=== PATIENT | female | born 1935 | race Caucasian/White ===

== ENCOUNTER 2017-08-16 05:28 | Inpatient (IN) | payer OTHER ==
[~2017-08-16] VITALS: Ht 160 cm; Wt 73.3 kg
[~2017-08-16 05:28] MED LIST: ADVAIR 250-501 EACH INH; ALBUTEROL0.63 MG/1 INH/SOL; ASPIRIN EC81 M1 PO; GUAIFENESIN ER600 MG PO; PREDNISONE10 M2 PO; SPIRIVA18 MCG INH; TYLENOL EXTRA500 M2 PO; VERAPAMIL HCL120 M3 PO
--- NOTE | 2017-08-16 05:30 | ED DYSPNEA/ASTHMA COMPLAINT ---
History of Present Illness General Chief Complaint: Dyspnea (COPD, CHF, Other) Stated Complaint: SOB Source: patient, EMS Exam Limitations: clinical condition Vital Signs & Intake/Output Vital Signs & Intake/Output Vital Signs Date Time Temp Pulse Resp B/P B/P Pulse O2 O2 Flow FiO2 Mean Ox Delivery Rate 08/16 0455 102.7 08/16 0443 90 161/73 97 Non 100% ReBreather 08/16 528 102.7 30 88 Room Air Allergies Coded Allergies: NO KNOWN ALLERGIES (NKDA) (08/19/10) Reconcile Medications Acetaminophen (Tylenol Extra Strength) 500 MG TABLET 1 TAB PO Q6 PRN POST HERPETIC NEURALGIA Albuterol Sulfate 0.63 MG/3 ML VIAL.NEB 1 Vial INH/KAELYN 4 TIMES/DAY PRN BREATHING PROBLEMS (Reported) Aspirin (Ecotrin*) 81 MG TABLET.DR 1 TAB PO DAILY HEART HEALTH (Reported) Fluticasone/Salmeterol (Advair 250-50 Diskus) 1 EACH BLST.W.DEV 1 PUF INH BID BREATHING PROBLEMS (Reported) Guaifenesin (Guaifenesin ER) 600 MG TAB.ER.12H 1 TAB PO Q12 COUGH Tiotropium [place] (Spiriva) 18 MCG CAP.W.DEV 1 CAP INH DAILY BREATHING PROBLEMS (Reported) Verapamil HCl 120 MG TABLET 1 TAB PO BID HEART (Reported) Triage Nurses Notes Reviewed? yes Onset: Gradual Duration: hour(s): Timing: recent history Severity: moderate, severe Activities at Onset: none Prior Episodes/Possible Cause: occasional episodes Modifying Factors: Improves With: rest. 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 Per the medics, she was well last night, but during the night developed cough, wheezing, hypoxia. Upon arrival, the medics found her 02 sat on 3l nc in mid 80's Past History Travel History Traveled to [place] past 21 day No Medical History Any Pertinent Medical History? 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 No Review of Systems Review of Systems Constitutional: Reports: no symptoms. EENTM: Reports: no symptoms. Respiratory: Reports: no symptoms. Cardiovascular: Reports: no symptoms. GI: Reports: no symptoms. Genitourinary: Reports: no symptoms. Musculoskeletal: Reports: no symptoms. Skin: Reports: no symptoms. Neurological/Psychological: Reports: no symptoms. Hematologic/Endocrine: Reports: no symptoms. Immunologic/Allergic: Reports: no symptoms. All Other Systems: Reviewed and Negative Physical Exam Physical Exam General Appearance: well developed/nourished, moderate distress Head: atraumatic, normal appearance Eyes: Bilateral: normal appearance. Ears, Nose, Throat: normal pharynx, normal ENT inspection Neck: normal inspection, supple, full range of motion Respiratory: accessory muscle use, rhonchi, wheezing, respiratory distress Cardiovascular: regular rate/rhythm Gastrointestinal: normal bowel sounds, soft, non-tender, no organomegaly Rectal: normal exam, normal rectal tone, heme negative stool Extremities: normal inspection, normal capillary refill, normal range of motion, no edema Neurologic/Psych: no motor/sensory deficits, awake, alert, oriented x 3 Skin: intact, normal color, warm/dry Core Measures ACS in differential dx? No CVA/TIA Diagnosis No Sepsis Present: Yes Sepsis Focused Exam Completed? Yes Progress Differential Diagnosis: asthma, bronchitis, CHF, COPD, pneumonia Plan of Care: Orders Procedure Date/time Status LACTIC ACID 08/16 0831 Active OXYGEN SETUP (GEN) 08/16 629 Complete AEROSOL (GEN) 08/16 629 Complete AEROSOL (GEN) 08/16 0610 Complete AEROSOL (GEN) 08/16 06 Complete ARTERIAL BLOOD GAS (GEN) 08/16 600 Complete BLOOD CULTURE 08/16 05 Active RAPID VIRAL INFLUENZA A 08/16 533 Complete BLOOD CULTURE 08/16 530 Active TROPONIN LEVEL 08/16 530 Complete PARTIAL THROMBOPLASTIN TIME 08/16 530 Complete PROTHROMBIN TIME 08/16 530 Complete LIPASE 08/16 530 Complete LACTIC ACID 08/16 530 Complete HEPATIC FUNCTION PANEL 08/16 530 Complete D-DIMER 08/16 530 Complete CBC WITHOUT DIFFERENTIAL 08/16 530 Complete B-TYPE NATRIURETIC PEP (BNP) 08/16 530 Complete BASIC METABOLIC PANEL 08/16 530 Complete AMYLASE 08/16 530 Complete EKG 08/16 530 Active Current Medications Sig/Ad Start time Last Medication Dose Stop Time Status Admin Heparin Sodium 5,000 UNIT ONCE ONE 08/16 644 CANr (Porcine) 08/16 645 (Heparin Bolus) Heparin Sodium 25,000 UNIT Q24H 08/16 644 CANr (Porcine) (Heparin) Sodium Chloride 500 ML Laboratory Tests 08/16/17 0540: pH 7.33 L, pCO2 36, pO2 63 L, HCO3 18 L, ABG O2 Sat (Measured) 91.0 L, Carboxyhemoglobin 0.2 L, O2 Concentration % 4L, O2 Delivery Method NC, Anion Gap 14, Estimated GFR 29 L, BUN/Creatinine Ratio 24.1, Glucose 123 H, Lactic Acid 2.2 H, Calcium 8.7, Total Bilirubin 0.6, Direct Bilirubin 0.3, AST 18, ALT 31, Alkaline Phosphatase 53, Troponin I 0.01, [id number]-R-Xzqqupbirvv Pept 3220 H, Total Protein 6.4, Albumin 3.5, Amylase 116 H, Lipase 178, PT 11.4, INR 1.05, APTT 20 L, D-Dimer High Sensitivty 5718 H, CBC w Diff MAN DIFF ORDERED, RBC 4.13 L, MCV 90.9, MCH 29.8, MCHC 32.8 L, RDW 14.9 H, MPV 7.4, Gran % 89.8 H, Lymphocytes % 6.4 L, Monocytes % 2.5, Eosinophils % 1.1, Basophils % 0.2, Absolute Granulocytes 11.3 H, Segmented Neutrophils 73, Band Neutrophils 14 H, Absolute Lymphocytes 0.8 L, Lymphocytes 7 L, Monocytes 4, Absolute Monocytes 0.3, Eosinophils 2, Absolute Eosinophils 0.1, Absolute Basophils 0, Platelet Estimate ADEQUATE, Poikilocytosis 1+, Ovalocytes 1+, Phlebotomy Draw Site RIGHT RADIAL Microbiology 08/16 614 BLOOD: Blood Culture - RECD 08/16 549 NASOPHARYN: Influenza Virus A & B Rapid Smear - COMP 08/17 539 BLOOD: Blood Culture - RECD Diagnostic Imaging: Viewed by Me: Radiology Read. Discussed w/RAD: Radiology Read. CXR Impression: PATIENT: GIBSON HERCULES PRESENT AGE: 82 PATIENT ACCOUNT NO: [id number] : 34 LOCATION: [facility] ORDERING PHYSICIAN: Kirby Maxwell MD SERVICE DATE: 08/16/17 EXAM TYPE: RAD - XRY-PORTABLE CHEST XRAY EXAMINATION: XR PORTABLE CHEST CLINICAL INFORMATION: Chest pain COMPARISON: 03/18/2017 TECHNIQUE: Portable frontal view of the chest was obtained. FINDINGS: There is heterogeneous opacification of the mid to basilar right lung, with a suspected small pleural effusion. Streaky opacity at the left base is more suggestive of atelectasis. No evidence of pneumothorax. The cardiomediastinal silhouette is stable. Calcification is present at the aortic arch. No acute osseous findings are seen. IMPRESSION: 1. Heterogeneous opacification of the mid to basilar right lung, concerning for pneumonia. 2. Small right pleural effusion. 3. Streaky left basilar opacity, suggesting atelectasis. DICTATED BY: Anand Corona MD DATE/TIME DICTATED:08/16 HAND TUBE WINDER:TESSA DATE/TIME TRANSCRIBED:08/16/17600 CONFIDENTIAL, DO NOT COPY WITHOUT APPROPRIATE AUTHORIZATION. <Electronically signed in Other Vendor System> SIGNED BY: Anand Corona MD 08/16/17605 Initial ED EKG: nsr, no acute changes Departure Departure Disposition: STILL A PATIENT Condition: Stable Clinical Impression Primary Impression: COPD exacerbation Secondary Impressions: Pneumonia, Sepsis Referrals: Hugo ACOSTA,Constantine Rios (PCP/Family) Departure Forms: Customer Survey General Discharge Information Comments 08/16/17, 5:32AM... pt's 02 sat 89% on 100% NRB via medics, upon arrival... with repositioning, 02 sat 97%... will check abg, titrate 02, Admission Note Spoke With: Stephanie Santa MD Documentation of Exam: Documentation of any treatments & extenuating circumstances including Concerns Regarding Discharge (functional status, medication knowledge or non-compliance, living conditions, etc.) that warrant an admission rather than observation: pt with hypoxia, cough, phlegm, evidence of pneumonia on cxr, with wheezing and prolonged expiratory phase on exam.... pt with increased 02 requirement and evidence of sepsis on exam. pt given steroids, abx, nebs, [address] santa... elevated d-dimer noted... will defer heparin given evidence of pneumonia. Critical Care Note Critical Care Note Critical Care Time: 30-74 min
--- NOTE | 2017-08-16 06:06 | RADIOLOGY REPORT ---
EXAMINATION: XR PORTABLE CHEST CLINICAL INFORMATION: Chest pain COMPARISON: 03/18/2017 TECHNIQUE: Portable frontal view of the chest was obtained. FINDINGS: There is heterogeneous opacification of the mid to basilar right lung, with a suspected small pleural effusion. Streaky opacity at the left base is more suggestive of atelectasis. No evidence of pneumothorax. The cardiomediastinal silhouette is stable. Calcification is present at the aortic arch. No acute osseous findings are seen. IMPRESSION: 1. Heterogeneous opacification of the mid to basilar right lung, concerning for pneumonia. 2. Small right pleural effusion. 3. Streaky left basilar opacity, suggesting atelectasis.
[2017-08-16 06:12] LABS: ABSOLUTE BASOPHIL COUNT 0 /CUMM (0.0-0.2); ABSOLUTE EOSINOPHIL COUNT 0.1 /CUMM (0.0-0.7); ABSOLUTE GRANULOCYTE CT 11.3 /CUMM (1.4-6.5); ABSOLUTE LYMPH COUNT 0.8 /CUMM (1.2-3.4); ABSOLUTE MONOCYTE COUNT 0.3 /CUMM (0.10-0.60); BASOPHIL % 0.2 % (0.0-2.0); EOSINOPHIL % 1.1 % (0-5); GRANULOCYTE % 89.8 % (42.2-75.2); HEMATOCRIT 37.6 % (37-47); MEAN CORPUSCULAR HGB 29.8 PG (27.0-31.0); MEAN CORPUSCULAR HGB CONC 32.8 G/DL (33.0-37.0); MEAN CORPUSCULAR VOLUME 90.9 FL (81.0-99.0); MEAN PLATELET VOLUME 7.4 FL (7.4-10.4); PLATELET COUNT 311 /CUMM (130-400); RBC DISTRIBUTION WIDTH 14.9 % (11.5-14.5); RED BLOOD CELL CT 4.13 /CUMM (4.20-5.40); WHITE BLOOD CELL COUNT 12.6 /CUMM (4.8-10.8)
[2017-08-16 06:17] LABS: PT 11.4 SEC (9.4-12.5); PTT 20 SEC (25-37)
--- NOTE | 2017-08-16 09:16 | Admission Certification ---
Admission Certification Certification Statement - As attending physician, I certify that at the time of - admission, based on clinical presentation, severity of - symptoms, need for further diagnostic testing and - therapeutic interventions, and risk of adverse outcomes - without in-hospital treatment, in my clinical assessment, - this patient requires an acute hospital stay for a minimum - of two nights or longer. I have also considered psychsocial - factors such as support system, advanced age, financial - issues, cognitive issues, and failed out-patient treatments, - past re-admission history, safety of patient, and lack of - compliance as applicable. Specific rationale supporting this admission is: Patient with underlying COPD here with a community-acquired pneumonia.
--- NOTE | 2017-08-16 09:50 | History & Physical ---
Disha Sanabria 08/16/17 0939: General Information and HPI MD Statement: I have seen and personally examined GIBSON HERCULES and documented this H&P. The patient is a 82 year old F who presented with a patient stated chief complaint of SOB Source of Information: patient Exam Limitations: no limitations History of Present Illness: Patient is 82-year-old pleasant woman with a past medical history significant for oxygen dependent COPD(on nocturnal 3 L of oxygen), questionable interstitial lung disease-history of 20-25 year exposure to chemicals and fumes at [facility], remote history of left lower extremity DVT -not on any anticoagulation ,history of hypertension, history of gout, history of osteoporosis, GERD, history of shingles March 2017 complicated with neuropathy, , presented to the ED through ambulance for the evaluation of acute shortness of breath. Patient mentioned that she usually have exertional shortness of breath due to her underlying obstructive lung disease, uses 3 L of oxygen at night. Last night she started having more shortness of breath with wheezing not associated with any chest discomfort palpitations/sweating. She used her rescue inhalers without any improvement in her symptoms. Her symptoms gotten worse to the point that she wouldn't able to breathe and called 911 for help. Upon arrival of the EMS patient was desaturating, she was put on 100% nonrebreather mask and the sats improved to 94. In the ED patient was extremely short of breath, initially nonrebreather mask was continued, she was administered 125 mg of Solu-Medrol, that resulted in slight improvement in her symptoms. At the time of evaluation patient was still short of breath saturating around 92 % on 5 L. 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 Denied any recent COPD flareups, never been intubated in the past. Denies any recent travels/sick exposures. Reported nausea without any vomiting abdominal discomfort. Denied any urinary complaints. Pt quit smoking many years ago and does not drink alcohol. At baseline she is independent in her ADLs, ambulates with a walker. Allergies/Medications Allergies: Coded Allergies: NO KNOWN ALLERGIES (NKDA) (08/19/10) Home Med list Acetaminophen (Tylenol Extra Strength) 500 MG TABLET 1 TAB PO Q6 PRN POST HERPETIC NEURALGIA Albuterol Sulfate 0.63 MG/3 ML VIAL.NEB 1 Vial INH/KAELYN 4 TIMES/DAY PRN BREATHING PROBLEMS (Reported) Aspirin (Ecotrin*) 81 MG TABLET.DR 1 TAB PO DAILY HEART HEALTH (Reported) Fluticasone/Salmeterol (Advair 250-50 Diskus) 1 EACH BLST.W.DEV 1 PUF INH BID BREATHING PROBLEMS (Reported) Guaifenesin (Guaifenesin ER) 600 MG TAB.ER.12H 1 TAB PO Q12 COUGH Tiotropium [place] (Spiriva) 18 MCG CAP.W.DEV 1 CAP INH DAILY BREATHING PROBLEMS (Reported) Verapamil HCl 120 MG TABLET 1 TAB PO BID HEART (Reported) Past History Travel History Traveled to [place] past 21 day No Medical History Neurological: NONE EENT: NONE Cardiovascular: hypertension Respiratory: COPD (3L/min NC O2) Gastrointestinal: GERD Hepatic: NONE Renal: NONE Musculoskeletal: gout, osteoporosis Psychiatric: NONE Endocrine: NONE Blood Disorders: NONE Cancer(s): NONE 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 Review of Systems Review of Systems Constitutional: Denies: diaphoresis, fever, malaise. EENTM: Denies: blurred vision, double vision, visual changes. Cardiovascular: Denies: chest pain, edema, orthopena. Respiratory: Reports: short of breath, wheezing. Denies: orthopnea. GI: Reports: nausea. Denies: bloating, constipation, diarrhea. Genitourinary: Denies: discharge, dysuria, frequency, hematuria. Musculoskeletal: Denies: back pain, gout, joint pain. Skin: Denies: change in skin color, change in hair/nails, dryness. Neurological/Psychological: Denies: anxiety, ataxia, cognitive dysfunction. Hematologic/Endocrine: Denies: bruising, bleeding. Exam & Diagnostic Data Last 24 Hrs of Vital Signs/I&O Vital Signs Date Time Temp Pulse Resp B/P B/P Pulse O2 O2 Flow FiO2 Mean Ox Delivery Rate 08/16 0932 98.5 94 20 143/65 96 Nasal 5.0L Cannula 08/16 0804 94 Nasal 5.0L Cannula 08/16 0728 99.9 08/16 0653 99.9 99 22 122/66 95 Nasal 5.0L Cannula 08/16 0630 92 Nasal 6.0L Cannula 08/16 0610 90 Nasal 6.0L Cannula 08/16 0555 102.7 08/16 0545 97 Non 100% ReBreather 08/16 0543 90 161/73 97 Non 100% ReBreather 08/16 0529 102.7 30 88 Room Air Intake & Output 08/16 1600 08/16 0800 08/16 0000 Intake Total 0 Output Total Balance 0 Intake, Oral 0 Physical Exam General Appearance Alert, Oriented X3 Skin No Rashes, No Breakdown Skin Temp/Moisture Exam: Cool/Dry Sepsis Skin Exam (color): Normal for Ethnicity, Cyanotic Cardiovascular Regular Rate, Normal S1, Normal S2 Lungs DECREASED AIR ENTRY IN ALL LUNG [place], WITH SOME CRACKLES/RONCHI IN RIGHT LUNG BASIS. Abdomen Normal Bowel Sounds, Soft, No Tenderness Neurological Normal Gait, Normal Speech, Strength at 5/5 X4 Ext Extremities BILATERAL LEG SWELLING LEFT MORE THAN THEN RIGHT Vascular Normal Pulses, Pulses Symmetrical Last 24 Hrs of Labs/Roberto: Laboratory Tests 08/16/17 0850: Lactic Acid 1.2 08/16/17 0540: pH 7.33 L, pCO2 36, pO2 63 L, HCO3 18 L, ABG O2 Sat (Measured) 91.0 L, Carboxyhemoglobin 0.2 L, O2 Concentration % 4L, O2 Delivery Method NC, Anion Gap 14, Estimated GFR 29 L, BUN/Creatinine Ratio 24.1, Glucose 123 H, Lactic Acid 2.2 H, Calcium 8.7, Total Bilirubin 0.6, Direct Bilirubin 0.3, AST 18, ALT 31, Alkaline Phosphatase 53, Troponin I 0.01, Pfm-T-Fqiiesxyxrn Pept 3220 H, Total Protein 6.4, Albumin 3.5, Amylase 116 H, Lipase 178, PT 11.4, INR 1.05, APTT 20 L, D-Dimer High Sensitivty 5718 H, CBC w Diff MAN DIFF ORDERED, RBC 4.13 L, MCV 90.9, MCH 29.8, MCHC 32.8 L, RDW 14.9 H, MPV 7.4, Gran % 89.8 H, Lymphocytes % 6.4 L, Monocytes % 2.5, Eosinophils % 1.1, Basophils % 0.2, Absolute Granulocytes 11.3 H, Segmented Neutrophils 73, Band Neutrophils 14 H, Absolute Lymphocytes 0.8 L, Lymphocytes 7 L, Monocytes 4, Absolute Monocytes 0.3, Eosinophils 2, Absolute Eosinophils 0.1, Absolute Basophils 0, Platelet Estimate ADEQUATE, Poikilocytosis 1+, Ovalocytes 1+, Phlebotomy Draw Site RIGHT RADIAL Microbiology 08/16 937 URINE ROUT: Legionella Antigen - ORD 08/16 937 URINE ROUT: Streptococcus pneumoniae Antigen (M - ORD 08/16 937 LOWER RESP: Respiratory Culture - ORD 08/16 937 LOWER RESP: Gram Stain - ORD 08/16 614 BLOOD: Blood Culture - RECD 08/16 549 NASOPHARYN: Influenza Virus A & B Rapid Smear - COMP 08/17 539 BLOOD: Blood Culture - RECD Assessment/Plan Assessment: Patient is 82-year-old pleasant woman with a past medical history significant for oxygen dependent COPD(on nocturnal 3 L of oxygen), questionable interstitial lung disease-history of 20-25 year exposure to chemicals and fumes at [employer], remote history of left lower extremity DVT -not on any anticoagulation ,history of hypertension, history of gout, history of osteoporosis, GERD, history of shingles March 2017 complicated with neuropathy, , presented to the ED through ambulance for the evaluation of acute shortness of breath. Initial vitals in the ED temperature 102.7, pulse 90, blood pressure 161/73, respiratory rate: 30, initially on 100% nonrebreather mask currently on 5 L saturating around 92% Pertinent labs in remission leukocytosis. 0.5 with bandemia 14, H&H stable,, hyperkalemia 5.4 BUN and creatinine: 41/1.7 with a d-dimer 5718 ABG pH 7.33, PCO2 36, with bicarbonate of 18. Lactic acidosis 2.2, elevated proBNP, flu test negative Chest x-ray evident for Heterogeneous opacification of the mid to basilar right lung, concerning for pneumonia. EKG showed normal sinus rhythm with QTC 413 and poor R-wave progression. Left lower extremity Doppler ultrasound positive for DVT. Assessment Acute hypoxic respiratory failure and sepsis in the setting of community- acquired pneumonia and COPD exacerbation Left lower extremities DVT(history of remote DVT in the past, not on any anticoagulation) Mild LILIA Mild hyperkalemia History of diastolic heart failure Questionable interstitial lung disease(long-term exposure to chemicals and fumes at [facility] more than 20 years) History of hypertension History of gout History of osteoporosis Plan Acute hypoxic respiratory failure and sepsis in the setting of community- acquired pneumonia and COPD exacerbation * Admit the patient [facility] floor * Patient already received IV Solu-Medrol 125 mg along with Rocephin and azithromycin in the ED with one bag of normal saline. We will continue with Rocephin and azithromycin for community for pneumonia. * Awaiting blood cultures will obtain sputum cultures strep pneumonia and legionella antigens. * Robitussin as needed for cough * IV hydration at the rate of 100 ml per hour * Start the patient on Solu-Medrol 40 mg every 8 hours * TRC nebs * Continue oxygen to keep saturations 92% * Monitor vitals every 4 hours was for any hemodynamic instability. Left lower extremities DVT(history of remote DVT in the past, not on any anticoagulation) * Left lower extremity ultrasound positive for DVT. We'll start the patient on heparin. * Left lower extremity DVT along with acute hypoxia, elevated d-dimer also raises the concern of pulmonary embolism(Wells Score:4.5), will just continue with heparin Will hold CTA for now in the setting of kidney dysfunction. Mild LILIA * IV hydration at the rate of 100 ml per hour Mild hyperkalemia * Repeat BEP tomorrow. History of diastolic heart failure * Patient has a history of diastolic heart failure echocardiogram done 2010 showed EF of more than 60%. ProBNP is currently elevated, will repeat echocardiogram to rule out any underlying heart failure contributing to acute shortness of breath. History of hypertension * Hold antihypertensives for now, we will resume antihypertensives once blood pressure is stable. Mild to moderate pain controlled with IV Tylenol DVT prophylaxis with heparin Patient is full code As Ranked By This Provider Problem List: 1. Sepsis 2. Pneumonia 3. COPD exacerbation 4. DVT (deep venous thrombosis) Core Measures/Misc (12/29) Acute Coronary Syndrome ACS Diagnosis: No Congestive Heart Failure Congestive Heart Failure Diagnosis No Cerebrovascular Accident CVA/TIA Diagnosis: No VTE (View Protocol) VTE Risk Factors Acute Medical Illness No Mechanical VTE Prophylaxis d/t LowRisk-No Interven Req'd No VTE Pharm Prophylaxis d/t LowRisk-No Interven Req'd Sepsis (View protocol) Sepsis Present: No Resident Review Statement Resident Statement: examined this patient, discussed with strategy intern Stephanie Solis MD 08/16/17 1043: Attending MD Review Statement Attending Statement Attending MD Statement: examined this patient, discuss w/resident/PA/SNOW MAKER, agreed w/resident/PA/SNOW MAKER, reviewed EMR data (avail), discussed with nursing, reviewed images Attending Assessment/Plan: 82-year-old female past medical history of COPD with chronic respiratory failure on 3 L of oxygen, she follows with a Dr. Gracia who is her discharging machine operator as an outpatient and is maintained on Symbicort and Spiriva as an outpatient. She also has a history remote history of a DVT with chronic lower extremity swelling. She is here with acute hypoxemic respiratory failure, and pneumonia as evidenced by a fever 102 with a cough, sputum, leukocytosis bandemia and an infiltrate on chest x-ray. She also has LILIA with dehydration in the setting of the acute infection. At this point will bring her into [facility], get blood cultures, sputum cultures, her flu swab was negative and will start on ceftriaxone and azithro. She has evidence of a COPD exacerbation and her blood gas shows a PO2 of 63 on 4 L which is clear evidence of acute hypoxemic respiratory failure. Will increase her O2 and watch her sats closely. We'll give IV steroids for COPD exacerbation and to continue her spiriva and Symbicort. She had an elevated d-dimer and the ultrasound is reported positive for a left popliteal DVT. Given her Lilia we'll start her on IV unfractionated heparin. 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
[2017-08-16 11:19] VITALS: BP 110/60
--- NOTE | 2017-08-16 13:23 | ULTRASOUND REPORT ---
EXAMINATION: LEFT LOWER EXTREMITY VENOUS DOPPLER ULTRASOUND CLINICAL INFORMATION: Left leg swelling. COMPARISON: None. TECHNIQUE: Doppler spectral analysis and color flow Doppler imaging was performed of the left lower extremity. Compression and augmentation maneuvers were performed. FINDINGS: The left common femoral vein, greater saphenous vein takeoff, and femoral vein, are normally compressible with normal phasic changes seen with Doppler imaging. There is noncompressibility of the left popliteal vein, consistent with an occlusive thrombus. The midcalf peroneal and posterior tibial veins are not seen. No popliteal cyst is seen. Of note, on initial scanning, a 8.1 x 9.1 x 8.4 cm cystic mass was seen in region of the left groin. The patient was brought back to the department for real-time assessment of this finding. On real-time scanning, this collection is shown to represent a large bladder diverticulum. The bladder and this diverticulum in aggregate measure approximately 19.6 x 8.8 cm. IMPRESSION: 1. Positive occlusive deep venous thrombosis in the left popliteal vein. 2. 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 If the patient is unable to void, straight catheter decompression of the bladder is recommended. This critical result was discussed with Dr. Disha Sanabria 08/16/2017, 11:30 AM, and it was ascertained that the content and urgency of this report was understood at the time of direct communication.
[2017-08-16 14:29] VITALS: BP 110/60
[2017-08-16 21:15] LABS: PTT 53 SEC (25-37)
[2017-08-16 22:17] VITALS: BP 134/56
[2017-08-17 05:18] LABS: ABSOLUTE BASOPHIL COUNT 0 /CUMM (0.0-0.2); ABSOLUTE EOSINOPHIL COUNT 0 /CUMM (0.0-0.7); ABSOLUTE GRANULOCYTE CT 19.8 /CUMM (1.4-6.5); ABSOLUTE LYMPH COUNT 0.6 /CUMM (1.2-3.4); ABSOLUTE MONOCYTE COUNT 0.7 /CUMM (0.10-0.60); BASOPHIL % 0 % (0.0-2.0); EOSINOPHIL % 0 % (0-5); GRANULOCYTE % 93.8 % (42.2-75.2); MEAN CORPUSCULAR HGB 29.5 PG (27.0-31.0); MEAN CORPUSCULAR HGB CONC 32.4 G/DL (33.0-37.0); MEAN CORPUSCULAR VOLUME 91.1 FL (81.0-99.0); MEAN PLATELET VOLUME 7.4 FL (7.4-10.4); PLATELET COUNT 208 /CUMM (130-400); RBC DISTRIBUTION WIDTH 14.9 % (11.5-14.5)
[2017-08-17 05:42] LABS: PTT > 120 SEC (25-37)
[2017-08-17 05:48] LABS: HEMATOCRIT 27.3 % (37-47); RED BLOOD CELL CT 2.99 /CUMM (4.20-5.40); WHITE BLOOD CELL COUNT 21.1 /CUMM (4.8-10.8)
[2017-08-17 06:20] VITALS: BP 116/50
--- NOTE | 2017-08-17 08:29 | PN- Housestaff ---
[facility]29[facility] Subjective Follow-up For: Acute hypoxic respiratory failure due to community acquired pneumonia Left leg DVT Subjective: No overnight events. Patient remained afebrile edema. Seen and examined this morning. Patient is short of breath as morning although she is using 4 L of oxygen and maintaining saturation 93%. Her ABG showed pH 7.28. Patient reported that she has intermittent cough and she is not able to bring sputum feeling tightness in the chest. Patient denied abdominal pain nausea vomiting and dysuria. I updated her her family about her condition. I spoke to her son and told him that she is currently on BiPAP for some time a cause of difficulty in breathing and if she couldn't get better may be transferred to ICU. Review of Systems Constitutional: Denies: chills, fever. EENTM: Reports: no symptoms. Cardiovascular: Denies: chest pain, palpitations. Respiratory: Reports: cough, short of breath, sputum production. Gastrointestinal: Denies: abdominal pain, constipation, diarrhea, melena, nausea. Genitourinary: Reports: no symptoms. Neurological/Psychological: Reports: no symptoms. Objective Last 24 Hrs of Vital Signs/I&O Vital Signs Date Time Temp Pulse Resp B/P B/P Pulse O2 O2 Flow FiO2 Mean Ox Delivery Rate 08/17 0803 101 148/60 08/17 0800 Nasal 3.0L Cannula 08/17 0725 93 Nasal 3.0L Cannula 08/17 0620 98.9 91 22 116/50 96 Nasal Cannula 08/17 0203 97 Nasal 3.0L Cannula 08/17 0000 99 Nasal 3.0L Cannula 08/16 2217 98.4 100 24 134/56 99 Nasal 3.0L Cannula 08/16 2127 100 134/56 05/05 1610 97 Nasal 4.0L Cannula 08/16 1600 97 Nasal 3.0L Cannula 08/16 1429 99.1 94 24 110/60 94 05/05 1311 Nasal 4.0L Cannula 05/05 1119 99.1 94 24 110/60 94 05/05 1046 Nasal 3.0L Cannula 05/05 1017 Nasal 5.0L Cannula / 0932 98.5 94 20 143/65 96 Nasal 5.0L Cannula Intake & Output 08/17 1600 08/17 0800 05/06 0000 Intake Total 1016 495 Output Total 700 Balance 316 495 Intake, IV 896 375 Intake, Oral 120 120 Number 0 Bowel Movements Output, Urine 700 Patient 162 lb Weight Weight Bed scale Measurement Method Physical Exam General Appearance: Alert, Oriented X3, Cooperative Skin: No Rashes Skin Temp/Moisture Exam: Warm/Dry Sepsis Skin Exam (color): Normal for Ethnicity HEENT: Atraumatic, PERRLA, EOMI Neck: Supple Cardiovascular: Normal S1, Normal S2 Lungs: b/l crepitus Abdomen: Soft, No Tenderness Neurological: Normal Speech, Strength at 5/5 X4 Ext, Normal Tone Extremities: b/l pedal edema Assessment/Plan Assessment: 82 YO F with PMH of 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 We are following the patient will follow problems: Acute hypoxic respiratory failure due to community accquired Pneumonia and COPD exacerbation: -Continue supplemental oxygen to keep saturation above 92%. -Continue azithromycin and ceftriaxone -TRC nebulization as needed -Continue Mucinex -Continue Solu-Medrol IV 40 mg every 8 hourly -Incentive spirometry -Chest physiotherapy -Follow blood cultures -Urine Legionella and strep antigens are negative -Patient's ABG showed pH 7.28 and she is tachypneic may need BiPAP. -IV fluids were discontinued. -Repeat chest x-ray to see for pleural effusion or congestion. Left leg DVT: -Doppler study was positive for left popliteal vein DVT -Continue IV heparin Acute kidney injury: -Possibly due to dehydration -Avoid nephrotoxic medications -Today her creatinine level is 1.5 Drop in H&H: -Patient's H&H has been dropped since yesterday -Repeat CBC -Patient may need blood transfusion History of diastolic heart failure: -Patient has a history of diastolic heart failure echocardiogram done 2010 showed EF of more than 60%. -Elevated proBNP on admission -We are holding her Lasix. If repeat chest x-ray showed any pleural effusion or congestion we will start low-dose Lasix. History of hypertension: -Holding her hypertension medications DVT prophylaxis: Mechanical and patient is on IV heparin drip CODE STATUS: Full code Problem List: 1. COPD exacerbation 2. Pneumonia 3. 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 Her ABG shows worsening metabolic acidosis and no CO2 retention and her PO2 is better on [address] Becker in for pulmonary consult and we did a chest x-ray which is difficult to interpret but cannot rule out interstitial edema. We also BladderScan her to see if she is retaining any urine given the ultrasound findings of the distended bladder and diverticulum but there is no urine in the bladder and the nurse confirm that she's been urinating all night. She is an 82-year-old female who we were treating for community-acquired pneumonia with IV ceftriaxone and azithromycin, she has chronic COPD with chronic respiratory failure on 3 L of oxygen chronically and we were treating her with IV steroids for a COPD exacerbation and she also has this popliteal DVT which we are treating with IV unfractionated heparin. At this point given the acute respiratory distress and acute hypoxemic respiratory failure, we we'll continue the antibiotics and steroids. We'll give her 1 dose of Lasix 20 mg IV push to account for any fluid overload and interstitial edema. Her creatinine is better for but will watch that closely and obviously stop the fluids. We'll continue the IV unfractionated heparin for treatment of VTE. Will start BiPAP and Dr. Becker has already spoken to the respiratory therapist about the settings for the same. Her son was updated about all of the above and if her condition doesn't improve in the next 1-2 hours we'll transfer her to the ICU.
--- NOTE | 2017-08-17 09:55 | Cons- Pulmonary ---
General Information and HPI Consulting Request Date of Consult: 08/17/17 Requested By: Savannah Renae Reason for Consult: Exacerbation COPD pneumonia History of Present Illness: Patient is an 82-year-old with severe COPD oxygen dependent admitted with increasing shortness of breath and found to have an abnormal chest x-ray with leukocytosis and bandemia acute kidney injury and lactic acidosis. She was started on IV steroids antibiotics and normal saline. Her course was complicated by an acute left DVT for which she is now on heparin. Serial arterial blood gases showed development of a worsening acidosis likely related to hyperchloremia as the lactic acid level has improved and there is no anion gap. Ultrasound suggests the possibility of bladder obstruction which may be contributing to an obstructive uropathy. Allergies/Medications Allergies: Coded Allergies: NO KNOWN ALLERGIES (NKDA) (08/19/10) Home Med List: Acetaminophen (Tylenol Extra Strength) 500 MG TABLET 1 TAB PO Q6 PRN POST HERPETIC NEURALGIA Albuterol Sulfate 0.63 MG/3 ML VIAL.NEB 1 Vial INH/KAELYN 4 TIMES/DAY PRN BREATHING PROBLEMS (Reported) Aspirin (Ecotrin*) 81 MG TABLET.DR 1 TAB PO DAILY HEART HEALTH (Reported) Fluticasone/Salmeterol (Advair 250-50 Diskus) 1 EACH BLST.W.DEV 1 PUF INH BID BREATHING PROBLEMS (Reported) Guaifenesin (Guaifenesin ER) 600 MG TAB.ER.12H 1 TAB PO Q12 COUGH Tiotropium [place] (Spiriva) 18 MCG CAP.W.DEV 1 CAP INH DAILY BREATHING PROBLEMS (Reported) Verapamil HCl 120 MG TABLET 1 TAB PO BID HEART (Reported) Review of Systems Review of Systems Constitutional: Reports: chills, fever. Cardiovascular: Reports: peripheral edema. Denies: chest pain. Respiratory: Reports: cough, short of breath. Denies: hemoptysis, sputum production. GI: Denies: abdominal pain, diarrhea, melena. 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 Home Services at Home: None Smoking Status: Former Smoker Functional Ability ADLs Independent: dressing, eating, toileting, bathing. Exam & Diagnostic Data Last 24 Hrs of Vital Signs/I&O Vital Signs Date Time Temp Pulse Resp B/P B/P Pulse O2 O2 Flow FiO2 Mean Ox Delivery Rate 08/17 0946 95 Nasal 4.0L Cannula 08/17 0803 101 148/60 08/17 0800 Nasal 3.0L Cannula 08/17 0725 93 Nasal 3.0L Cannula 08/17 0620 98.9 91 22 116/50 96 Nasal Cannula 08/17 0203 97 Nasal 3.0L Cannula 08/17 0000 99 Nasal 3.0L Cannula 08/16 2217 98.4 100 24 134/56 99 Nasal 3.0L Cannula 08/16 2127 100 134/56 / 1610 97 Nasal 4.0L Cannula 08/16 1600 97 Nasal 3.0L Cannula 08/16 1429 99.1 94 24 110/60 94 05/05 1311 Nasal 4.0L Cannula 08/16 1119 99.1 94 24 110/60 94 05/05 1046 Nasal 3.0L Cannula 08/16 1017 Nasal 5.0L Cannula Intake & Output 08/17 1600 08/17 0800 05/ 0000 Intake Total 1016 495 Output Total 700 Balance 316 495 Intake, IV 896 375 Intake, Oral 120 120 Number 0 Bowel Movements Output, Urine 700 Patient 162 lb Weight Weight Bed scale Measurement Method Oxygen saturation 4 L 95%exam for chest shows crackles over the right posterior lung there are no wheezes breath sounds are diminished cardiac exam shows regular S1 and S2 without murmurs abdomen is soft nontender there is asymmetrical edema of the left leg H EENT exam shows no adenopathy or jugular venous distention Last 48 Hrs of Labs/Roberto: Laboratory Tests 08/17/17 0900: pH 7.28 *L, pCO2 38, pO2 82, HCO3 17 L, ABG O2 Sat (Measured) 95.0 L, Carboxyhemoglobin 0.1 L, O2 Concentration % 4L, O2 Delivery Method N/C, Phlebotomy Draw Site LEFT RADIAL 08/17/17 0455: Anion Gap 9, Estimated GFR 33 L, BUN/Creatinine Ratio 29.3 H, APTT > 120 *H, CBC w Diff MAN DIFF ORDERED, RBC 2.99 L, MCV 91.1, MCH 29.5, MCHC 32.4 L, RDW 14.9 H, MPV 7.4, Gran % 93.8 H, Lymphocytes % 3.0 L, Monocytes % 3.2, Eosinophils % 0, Basophils % 0, Absolute Granulocytes 19.8 H, Segmented Neutrophils 89 H, Band Neutrophils 7 H, Absolute Lymphocytes 0.6 L, Lymphocytes 3 L, Monocytes 1 L, Absolute Monocytes 0.7 H, Absolute Eosinophils 0, Absolute Basophils 0, Platelet Estimate ADEQUATE, Hypochromic- Microcytic 1+, Anisocytosis 1+ 08/16/172004: APTT 53 H 08/16/17 1250: Urine Color YEL, Urine Clarity CLEAR, Urine pH 6.0, Ur Specific [place] 1.020, Urine Protein NEG, Urine Ketones NEG, Urine Nitrite NEG, Urine Bilirubin NEG, Urine Urobilinogen 0.2, Ur Leukocyte Esterase NEG, Ur Microscopic EXAM NOT REQUIRED, Urine Hemoglobin NEG, Urine Glucose NEG 08/16/17 0850: Lactic Acid 1.2 08/16/17 0540: pH 7.33 L, pCO2 36, pO2 63 L, HCO3 18 L, ABG O2 Sat (Measured) 91.0 L, Carboxyhemoglobin 0.2 L, O2 Concentration % 4L, O2 Delivery Method NC, Anion Gap 14, Estimated GFR 29 L, BUN/Creatinine Ratio 24.1, Glucose 123 H, Lactic Acid 2.2 H, Calcium 8.7, Total Bilirubin 0.6, Direct Bilirubin 0.3, AST 18, ALT 31, Alkaline Phosphatase 53, Troponin I 0.01, Qxe-J-[place]b Pept 3220 H, Total Protein 6.4, Albumin 3.5, Amylase 116 H, Lipase 178, PT 11.4, INR 1.05, APTT 20 L, D-Dimer High Sensitivty 5718 H, CBC w Diff MAN DIFF ORDERED, RBC 4.13 L, MCV 90.9, MCH 29.8, MCHC 32.8 L, RDW 14.9 H, MPV 7.4, Gran % 89.8 H, Lymphocytes % 6.4 L, Monocytes % 2.5, Eosinophils % 1.1, Basophils % 0.2, Absolute Granulocytes 11.3 H, Segmented Neutrophils 73, Band Neutrophils 14 H, Absolute Lymphocytes 0.8 L, Lymphocytes 7 L, Monocytes 4, Absolute Monocytes 0.3, Eosinophils 2, Absolute Eosinophils 0.1, Absolute Basophils 0, Platelet Estimate ADEQUATE, Poikilocytosis 1+, Ovalocytes 1+, Phlebotomy Draw Site RIGHT RADIAL Microbiology 08/16 1250 URINE ROUT: Legionella Antigen - COMP 08/16 1250 URINE ROUT: Streptococcus pneumoniae Antigen (M - COMP 08/16 0550 NASOPHARYN: Influenza Virus A & B Rapid Smear - COMP Assessment/Plan Impression/Plan: 86-year-old with severe COPD admitted with acute hypoxic respiratory failure and dyspnea with acute kidney injury improved lactic acidosis and chest x-ray suggestive of pneumonia in view of leukocytosis and bandemia patient is developed increased acidemia which appears to be due to a non-anion gap hyperchloremic acidosis. BMP is elevated suggesting possibility of congestive heart failure or pulmonary thromboembolism. Patient is being fully anticoagulated. CTA is not feasible given acute kidney injury Recommendations: DC normal saline and continue hydration with half-normal saline. Bladder scan for urinary retention. If Significant Pl., Steele catheter. In view of dyspnea would trial BiPAP 14/6 FiO2 35%. Cardiac ultrasound to evaluate LV function and RV pressures. Once dyspnea improves would consider noncontrast CT scan of the chest to better evaluate pulmonary infiltrates and presence of right effusion with increased leukocytosis. Fully culture. Discussed with attending and housestaff Consult Acknowledgment - Thank you for your consult request.
--- NOTE | 2017-08-17 10:34 | RADIOLOGY REPORT ---
EXAMINATION: XR PORTABLE CHEST CLINICAL INFORMATION: Shortness of breath. Presumptive diagnosis of pleural effusion, pneumonia. COMPARISON: Multiple prior chest x-rays, most recent of which is dated 08/16/2017. TECHNIQUE: Portable AP semierect view of the chest was obtained. FINDINGS: Due to patient obliquity, cardiomediastinal silhouette is difficult to evaluate but appears grossly unchanged compared to prior studies. Lungs are hyperinflated, consistent with patient's history of obstructive lung disease. There are persistent patchy parenchymal opacities in the right mid and lower lung and in the left lower lung, likely similar to the previous study when allowing for differences in technique. There is an associated small right-sided pleural effusion. No pneumothorax is seen. Diffuse osteopenia is noted. IMPRESSION: 1. No interval change in the right mid and lower lung opacities, likely related to pneumonia. Associated small right-sided pleural effusion is seen. 2. No interval change in linear opacities in left lung base, likely due to subsegmental atelectasis.
[2017-08-17 11:06] LABS: ABSOLUTE BASOPHIL COUNT 0 /CUMM (0.0-0.2); ABSOLUTE EOSINOPHIL COUNT 0 /CUMM (0.0-0.7); ABSOLUTE GRANULOCYTE CT 21.5 /CUMM (1.4-6.5); ABSOLUTE LYMPH COUNT 0.6 /CUMM (1.2-3.4); ABSOLUTE MONOCYTE COUNT 0.6 /CUMM (0.10-0.60); BASOPHIL % 0 % (0.0-2.0); EOSINOPHIL % 0 % (0-5); HEMATOCRIT 29.3 % (37-47); MEAN CORPUSCULAR HGB CONC 32.6 G/DL (33.0-37.0); MEAN PLATELET VOLUME 7.6 FL (7.4-10.4); PLATELET COUNT 233 /CUMM (130-400); RBC DISTRIBUTION WIDTH 14.6 % (11.5-14.5); RED BLOOD CELL CT 3.19 /CUMM (4.20-5.40); WHITE BLOOD CELL COUNT 22.7 /CUMM (4.8-10.8)
[2017-08-17 11:26] LABS: GRANULOCYTE % 94.8 % (42.2-75.2)
[2017-08-17 13:13] LABS: PTT 77 SEC (25-37)
[2017-08-17 14:50] VITALS: BP 140/60
[2017-08-17 21:00] VITALS: BP 120/56
[2017-08-18 02:01] LABS: PTT 55 SEC (25-37)
[2017-08-18 06:31] VITALS: BP 118/60
--- NOTE | 2017-08-18 07:11 | PN- Housestaff ---
[facility] Subjective Follow-up For: Acute hypoxic respiratory failure due to community acquired pneumonia Left leg DVT Subjective: No overnight events. Patient remained afebrile. Seen and examined this morning. She denied any chest pain, nausea, vomiting, chills, fever, abdominal pain dysuria. Patient having baseline shortness of breath and he was on 3 L of oxygen at home. Right now patient is using BiPAP as needed and on 3 L of oxygen. And she is maintaining saturation 96%. Patient is feeling well today. Review of Systems Constitutional: Denies: chills, fever. EENTM: Reports: no symptoms. Cardiovascular: Denies: chest pain, palpitations. Respiratory: Reports: short of breath. Denies: cough, sputum production. Gastrointestinal: Denies: abdominal pain, constipation, diarrhea, nausea, vomiting. Genitourinary: Reports: no symptoms. Neurological/Psychological: Reports: no symptoms. Objective Last 24 Hrs of Vital Signs/I&O Vital Signs Date Time Temp Pulse Resp B/P B/P Pulse O2 O2 Flow FiO2 Mean Ox Delivery Rate 08/19 0736 96 Nasal 4.0L Cannula 08/18 0815 90 96 08/18 0631 98.1 79 22 118/60 97 BIPAP 08/18 0025 78 98 08/18 0000 BIPAP 30% 08/17 2206 76 99 / 2100 98.5 89 20 120/56 99 BIPAP 30% /06 2055 98.5 89 20 120/56 05/06 1833 94 97 / 1832 BIPAP 35% / 1615 96 Nasal 35% Cannula 08/17 1600 BIPAP 40% / 1450 99.4 85 20 140/60 97 Intake & Output 08/18 1600 08/18 0800 05/ 0000 Intake Total 565.6 639.6 Output Total 500 450 Balance 65.6 189.6 Intake, IV 205.6 159.6 Intake, Oral 360 480 Number 0 Bowel Movements Output, Urine 500 450 Patient 73 lb 6 oz Weight Weight Bed scale Measurement Method Physical Exam General Appearance: Alert, Oriented X3, Cooperative Skin: echymosis on hands Skin Temp/Moisture Exam: Warm/Dry Sepsis Skin Exam (color): Normal for Ethnicity HEENT: Atraumatic, PERRLA, EOMI Neck: Supple Cardiovascular: Normal S1, Normal S2 Lungs: Clear to Auscultation Abdomen: Soft, No Tenderness Neurological: Normal Speech, Strength at 5/5 X4 Ext, Normal Tone Extremities: b/l pedal edema Assessment/Plan Assessment: 82 YO F with PMH of 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 We are following the patient will follow problems: Acute hypoxic respiratory failure due to community accquired Pneumonia and COPD exacerbation: -Continue supplemental oxygen to keep saturation above 92%. Right now she is on 3 L of oxygen and using BiPAP when necessary. -Continue azithromycin and ceftriaxone day 2 -TRC nebulization as needed -Continue Mucinex -Continue Solu-Medrol IV 40 mg every 8 hourly -Incentive spirometry -Chest physiotherapy -Blood cultures are negative so -Urine Legionella and strep antigens are negative -Repeat chest x-ray didn't show any congestion but there was a small right-sided pleural effusion that was very similar to previous chest x-ray on admission. -Possibly patient having PE that's causing her shortness of breath. Patient is going for CT scan chest today. Left leg DVT: -Doppler study was positive for left popliteal vein DVT -Continue IV heparin -We will bridge him with Coumadin starting with 5 mg after checking INR. -Check daily INR Acute kidney injury: -Possibly due to dehydration -Avoid nephrotoxic medications -Today her creatinine level is 1.6 Drop in H&H: -Patient's H&H has been dropped since yesterday -Repeat CBC showed hemoglobin 9.6 and today it's 8.6 -We will closely monitor his H&H -Patient may need blood transfusion History of diastolic heart failure: -Patient has a history of diastolic heart failure echocardiogram done 2010 showed EF of more than 60%. -Elevated proBNP on admission. But less likely have CHF exacerbation as there is no congestion on chest x-ray and right pleural effusion is fairly stable compared to chest x-ray on admission. History of hypertension: -Continue verapamil DVT prophylaxis: Mechanical and patient is on IV heparin drip CODE STATUS: Full code Problem List: 1. Pneumonia 2. DVT (deep venous thrombosis) 3. COPD exacerbation Pain Ratin Pain Location: none Pain Goal: Remain pain free Pain Plan: pain pathway Tomorrow's Labs & Rationales: cbc/bep/INR Carlo ACOSTABenjamin 08/18/17 1131: Attending Review Statement Attending Statement Attending MD Statement: examined this patient, discuss w/resident/PA/PMP PROJECT MANAGER, agreed w/resident/PA/PMP PROJECT MANAGER, reviewed EMR data (avail), discussed with nursing, discussed with case mgmt, amended to note Attending Assessment/Plan: Patient seen and examined. Sitting up in bed. Obviously short of breath. Requiring oxygen supplementation. Afebrile. Patient reports at baseline she is on 3 L of oxygen. At baseline she reports that she gets short of breath with minor activities such as folding clothes. She reports feeling more short of breath in her current state. She denies chest pain. Denies palpitations. On examination she has very poor entry bilaterally. From her history she appears to have advanced COPD. This has been aggravated by what appears to be pneumonia in the right lung field. Superimposed pulmonary embolism is also within the differential however was unable to do a definitive study with a CT angiogram due to her renal insufficiency. This is purely academic at this point as she will be on lifelong anticoagulant therapy given her a vein thrombosis which appears to be unprovoked. Problems: 1. Acute on chronic hypoxic respiratory failure 2. COPD exacerbation 3. Lower extremity deep vein thrombosis 4. Acute on chronic leukocytosis 5. Chronic anemia first noted on labs since March 2017. Recommendations: -Begin patient on Coumadin for long-term anticoagulation therapy. Continue IV heparin for bridging. -Continue therapy for her acute on chronic hypoxic respiratory failure with bronchodilators, systemic steroids and BiPAP therapy as recommended by the pulmonology service. -Obtain chest CT without IV contrast as recommended by the pulmonology service for further evaluation of the pulmonary parenchyma. -Follow-up with the patient's family regarding previous age-appropriate cancer screening that has been done. -Recommend renal sonogram for further evaluation of renal insufficiency particularly to rule out obstructive process. Creatinine is currently improving. -Laboratory data suggests chronic leukocytosis. Likely aggravated now by her infection and steroid therapy. She is also noted to be anemic starting March 2017. Check stool guaiac, iron profile and peripheral smear. If hemoglobin level is stable would recommend outpatient follow-up with the hematology service. -Mobilize patient as tolerated.
[2017-08-18 08:05] LABS: ABSOLUTE BASOPHIL COUNT 0 /CUMM (0.0-0.2); ABSOLUTE EOSINOPHIL COUNT 0 /CUMM (0.0-0.7); ABSOLUTE GRANULOCYTE CT 14.3 /CUMM (1.4-6.5); ABSOLUTE LYMPH COUNT 0.5 /CUMM (1.2-3.4); ABSOLUTE MONOCYTE COUNT 0.4 /CUMM (0.10-0.60); BASOPHIL % 0 % (0.0-2.0); EOSINOPHIL % 0 % (0-5); HEMATOCRIT 26.3 % (37-47); MEAN CORPUSCULAR HGB 29.7 PG (27.0-31.0); MEAN CORPUSCULAR HGB CONC 32.7 G/DL (33.0-37.0); MEAN CORPUSCULAR VOLUME 90.9 FL (81.0-99.0); MEAN PLATELET VOLUME 7.9 FL (7.4-10.4); RBC DISTRIBUTION WIDTH 15.4 % (11.5-14.5); RED BLOOD CELL CT 2.89 /CUMM (4.20-5.40); WHITE BLOOD CELL COUNT 15.3 /CUMM (4.8-10.8)
--- NOTE | 2017-08-18 08:06 | PN- Pulmonary ---
Subjective HPI/Critical Care Issues: Patient's dyspnea is markedly improved. She is comfortable on BiPAP Objective Current Medications: Current Medications Sig/Ad Start time Last Medication Dose Route Stop Time Status Admin Acetaminophen 1,000 MG Q6P PRN 08/16 0845 AC N/A 1 UNIT IV Albuterol Sulfate 3 ML EVERY 4 HRS/AWAKE 08/16 1200 AC 08/17 INH 2000 Aspirin Buffered 81 MG DAILY 08/16 0837 AC 08/17 PO 0803 Azithromycin 500 MG DAILY 08/17 09 AC 08/17 Sodium Chloride 250 ML IV 0807 Bisacodyl 5 MG DAILY 08/17 0916 AC 08/17 PO 1256 Budesonide/ 2 PUF BID 08/16 0938 AC 08/17 Formoterol Fumarate INH 2054 Ceftriaxone Sodium 1,000 MG DAILY 08/17 899 AC 08/17 IV 0802 Furosemide 20 MG ONCE ONE 08/17 1100 DC 08/17 IV 08/17 1101 1058 Furosemide 40 MG .STK-MED ONE 08/17 1054 DC IV 08/17 1055 Guaifenesin 600 MG Q12 08/16 936 AC 08/17 PO 2054 Heparin Sodium 2,944 UNIT BOLUS ONE 08/18 0220 DC 08/18 (Porcine) IV 08/18 0221 0230 Heparin Sodium 25,000 UNIT Q24H 08/16 1030 AC 08/18 (Porcine) IV 0232 Sodium Chloride 500 ML Lidocaine 1 PAT Q24H PRN 08/16 944 AC EXT Methylprednisolone 40 MG Q8 08/16 1400 AC 08/18 IV 0558 Polyethylene Glycol 17 GM DAILY 08/17 0916 AC 08/17 PO 1255 Sodium Chloride 1,000 ML Q10H 08/16 0945 DC 08/16 IV 2232 Tiotropium [place] 1 PUF DAILY 08/16 09 AC 08/17 INH 0802 Verapamil HCl 120 MG BID 08/16 2100 AC 08/17 PO 2054 Vital Signs & I&O Last 24 Hrs of Vitals and I&O: Vital Signs Date Time Temp Pulse Resp B/P B/P Pulse O2 O2 Flow FiO2 Mean Ox Delivery Rate 08/18 630 98.1 79 22 118/60 97 BIPAP 08/18 0025 78 98 05/07 0000 BIPAP 30% 08/17 2205 76 99 08/17 2099 98.5 89 20 120/56 99 BIPAP 30% 08/17 2054 98.5 89 20 120/56 08/17 1833 94 97 08/17 1832 BIPAP 35% 08/17 1615 96 Nasal 35% Cannula 08/17 1600 BIPAP 40% 08/17 1450 99.4 85 20 140/60 97 / 0946 95 Nasal 4.0L Cannula Intake & Output 08/18 1600 08/18 0800 05/ 0000 Intake Total 565.6 639.6 Output Total 500 450 Balance 65.6 189.6 Intake, IV 205.6 159.6 Intake, Oral 360 480 Number 0 Bowel Movements Output, Urine 500 450 Oxygen saturation 30% 97% exam for chest shows diminished breath sounds are no wheezes cardiac exam shows regular S1 and S2 without murmurs there continues to be left leg swelling Impression/Plan Impression/Plan Impression/Plan: 82-year-old woman with severe oxygen-dependent COPD admitted with exacerbation of COPD improved on BiPAP. There may well be a component of congestive heart failure. Recommendations: Trial off BiPAP and Taper FiO2. Repeat labs. Follow-up cultures. Cardiac ultrasound to be performed. If white count remains elevated would obtain noncontrast CT scan of the chest.
[2017-08-18 08:15] LABS: PTT 88 SEC (25-37)
[2017-08-18 08:51] LABS: GRANULOCYTE % 93.6 % (42.2-75.2); PLATELET COUNT 210 /CUMM (130-400)
[2017-08-18 14:06] VITALS: BP 130/64
--- NOTE | 2017-08-18 16:04 | CT SCAN REPORT ---
EXAMINATION: CT CHEST WITHOUT CONTRAST CLINICAL INFORMATION: Shortness of breath and persistent elevation of WBC level. COMPARISON: CXR from 03/18/2017 and 08/17/2017. Chest CT from 08/21/2010. TECHNIQUE: Multidetector volumetric CT imaging of the chest was done. Axial MIP volume rendering provided. Sagittal and coronal reformatted images were obtained. DLP: 407 mGy-cm FINDINGS: LUNGS AND PLEURA: Pxzqucmp-hd-pnyywj centrilobular emphysema has an upper lobe predominance. Peribronchial reticular opacities and some scattered nodular opacities in right upper and right lower lobes are consistent with infectious/inflammatory changes. Also, there is patchy consolidation with air bronchograms in the right lower lobe without evidence of cavitary lesion or pulmonary abscess. There are some scattered peribronchial reticular and nodular opacities in the left lung. Trace right pleural effusion is present. MEDIASTINUM: The heart size is mildly enlarged. There is three-vessel coronary artery atherosclerotic calcification. Also, thoracic aorta is calcified and without aneurysm. No pericardial effusion. The esophagus has normal wall thickness. The thyroid gland is grossly unremarkable. LYMPHATICS: No axillary or internal mammary lymphadenopathy. No hilar lymphadenopathy. A prominent right-sided precarinal lymph node is 1.2 cm AP (compared to 1 cm on 08/21/2010). UPPER ABDOMEN: Atherosclerotic calcification of the abdominal aorta and branch vessels There are a few bilateral renal calculi and/or arterial vascular calcifications of both kidneys. Mild bilateral renal cortical atrophy. 1.8 cm cortical cyst at the lateral aspect of the lower pole of the right kidney has a simple appearance on these noncontrast images. No acute findings within the visualized solid or hollow viscera of the upper abdomen. There appears to be a prominent cisterna chyli in the right retrocrural region. SKELETAL AND CHEST WALL: Bones are diffusely osteoporotic. There are several old thoracic vertebral compression fractures, including T5, T7 and T9. No acute findings within the degenerated, hyperkyphotic thoracic spine. No aggressive osseous lesions. IMPRESSION: 1. Vuyqgfqy-ou-pjcjvd pulmonary emphysema. 2. Multilobar pneumonia (predominantly involving right lower lobe) and trace right pleural effusion. No evidence of pulmonary abscess. 3. The mildly enlarged precarinal lymph node is likely reactive to the pulmonary disease. 4. Atherosclerotic disease of coronary arteries and thoracic aorta without aortic aneurysm.
--- NOTE | 2017-08-18 16:39 | ECHOCARDIOGRAM REPORT ---
GIBSON HERCULES Age: 82 : 1935 Gender: F Exam Date: 08/17/2017 13:47 Exam Location: [address] [place] [address] Ht (in): 63 Wt (lb): 155 BSA: 1.79 BP: 116 / 50 Ordering Physician: Disha Sanabria MD Referring Physician: Disha Sanabria MD Technologist: Kailyn Carevr [facility] Room Number: [id number] Indications: HEART FAILURE Rhythm: Sinus Technical Quality: Fair, Technically difficult study FINDINGS Left Ventricle Normal size left ventricle. No obvious regional wall motion abnormalities. Left ventricular wall thickness increased. Normal left ventricular ejection fraction estimated at 55-60%. Right Ventricle Right ventricle not well visualized, grossly normal. Right Atrium Right atrium not well visualized, grossly normal. Left Atrium Left atrial size at the upper limits of normal. Mitral Valve Mild thickening/calcification of the anterior mitral valve leaflet. Mild mitral annular calcification. Mild mitral regurgitation. Aortic Valve Trileaflet aortic valve. Diffuse thickening (sclerosis) of the aortic valve cusps without reduced excursion. No aortic stenosis. No aortic regurgitation. Tricuspid Valve Tricuspid valve not well visualized. Trace to mild tricuspid regurgitation. Right ventricular systolic pressure estimated to be elevated at 48 mmHg. Pulmonic Valve Pulmonic valve not well visualized, grossly normal. Pericardium No pericardial effusion. Great Vessels Aortic root and proximal ascending aorta not well visualized, grossly normal. CONCLUSIONS 1. This was a technically difficult examination. 2. Aortic sclerosis is present with no valvular stenosis or insufficinecy. 3. Thickening and calcification of the mitral leaflets is present with anular calcification and mild mitral insufficiency. 4. There is no significant pericardial fluid present. 5. The left ventricular chamber size and systolic function appear normal with no visible resting wall motioin abnormalities. 6. The right heart structures were not optimally assessed. Minimal to mild tricuspid insufficiency is present with an estimated RV systolic pressure or 48 mmHg. Victoriano Cool M.D. (Electronically Signed) Final Date: 18 Aug 2017 16:38 MEASUREMENTS (Male / Female) Normal Values 2D ECHO LV Diastolic Diameter PLAX 4.5 cm 4.2 - 5.9 / 3.9 - 5.3 cm LV Systolic Diameter PLAX 2.1 cm 2.1 - 4.0 cm LV Fractional Shortening PLAX 53.3 % 25 - 46 % LV Ejection Fraction 2D Teich 84.4 % IVS Diastolic Thickness 1.3 cm LVPW Diastolic Thickness 1.3 cm LV Relative Wall Thickness 0.6 RV Internal Dim ED PLAX 3.0 cm 1.9 - 3.8 cm LVOT Diameter 2.1 cm Aortic Root Diameter 3.1 cm LA Systolic Diameter LX 3.5 cm 3.0 - 4.0 / 2.7 - 3.8 cm LA Volume 45.0 cm 18 - 58 / 22 - 52 cm Ascending Aorta Diameter 3.2 cm DOPPLER AV Peak Velocity 178.0 cm/s AV Peak Gradient 12.7 mmHg AV Mean Velocity 124.0 cm/s AV Mean Gradient 7.0 mmHg AV Velocity Time Integral 41.0 cm LVOT Peak Velocity 154.0 cm/s LVOT Peak Gradient 9.5 mmHg LVOT Mean Velocity 99.1 cm/s LVOT Mean Gradient 5.0 mmHg LVOT Velocity Time Integral 30.3 cm LVOT Stroke Volume 104.9 cm AV Area Cont Eq vti 2.6 cm AV Area Cont Eq pk 3.0 cm MV Peak Velocity 180.0 cm/s MV Peak Gradient 13.0 mmHg MV Mean Velocity 106.0 cm/s MV Mean Gradient 5.0 mmHg Mitral E Point Velocity 148.0 cm/s Mitral A Point Velocity 158.0 cm/s Mitral E to A Ratio 0.9 MV PHT Velocity 144.0 cm/s MV Deceleration [place] 372.0 cm/s MV Pressure Half Time 116.1 ms MV Area PHT 1.9 cm MV Deceleration Time 312.0 ms TR Peak Velocity 331.0 cm/s TR Peak Gradient 43.8 mmHg Right Atrial Pressure 5.0 mmHg Pulmonary Artery Systolic Pressu 48.8 mmHg Right Ventricular Systolic Press 48.8 mmHg PV Peak Velocity 108.0 cm/s PV Peak Gradient 4.7 mmHg PV Mean Velocity 66.0 cm/s PV Mean Gradient 2.0 mmHg PV Velocity Time Integral 15.5 cm LV E' Lateral Velocity 6.9 cm/s Mitral E to LV E' Lateral Ratio 21.6 LV E' Septal Velocity 6.8 cm/s Mitral E to LV E' Septal Ratio 21.8
[2017-08-18 16:50] LABS: PT 11.4 SEC (9.4-12.5)
[2017-08-18 20:11] VITALS: BP 120/70
[2017-08-18 21:41] LABS: PTT 64 SEC (25-37)
[2017-08-19 06:18] VITALS: BP 136/72
--- NOTE | 2017-08-19 07:22 | PN- Housestaff ---
[facility] Subjective Follow-up For: Acute on chronic hypoxic respiratory failure due to community-acquired pneumonia and COPD exacerbation Left leg DVT LILIA Subjective: No overnight events. Patient remained afebrile. Seen and examined this morning. She is on 35% high flow oxygen and maintaining saturation 96%. Patient is feeling much improved. She denied any chest pain, palpitation, nausea, vomiting, cough, sputum, abdominal pain and dysuria. We will try to wean off her oxygen and ambulate her. We are bridging Coumadin with IV heparin. Review of Systems Constitutional: Denies: chills, fever. EENTM: Reports: no symptoms. Cardiovascular: Denies: chest pain, palpitations. Respiratory: Denies: cough, short of breath, sputum production. Gastrointestinal: Denies: abdominal pain, diarrhea, melena, nausea, vomiting. Genitourinary: Reports: no symptoms. Neurological/Psychological: Reports: no symptoms. Objective Last 24 Hrs of Vital Signs/I&O Vital Signs Date Time Temp Pulse Resp B/P B/P Pulse O2 O2 Flow FiO2 Mean Ox Delivery Rate 08/19 0935 72 138/72 08/19 0811 95 Nasal 35% Cannula 08/19 0618 97.7 78 20 136/72 98 08/19 0045 91 97 08/19 0000 96 BIPAP 08/18 2050 68 96 08/18 2010 98.9 88 18 120/70 97 Nasal 35% Cannula 08/18 2002 88 120/70 08/18 1948 96 Nasal 35% Cannula 08/18 1636 96 Nasal 35% Cannula 08/18 1557 Nasal Cannula 08/18 1406 98.5 83 20 130/64 96 Room Air 08/18 1130 96 Nasal 35% Cannula Intake & Output 08/19 1600 08/19 0800 08/19 0000 Intake Total 325.6 1005.6 Output Total 200 Balance 325.6 805.6 Intake, IV 205.6 205.6 Intake, Oral 120 800 Output, Urine 200 Physical Exam General Appearance: Alert, Oriented X3, Cooperative Skin Temp/Moisture Exam: Warm/Dry Sepsis Skin Exam (color): Normal for Ethnicity HEENT: Atraumatic, PERRLA, EOMI Neck: Supple Cardiovascular: Normal S1, Normal S2 Lungs: dECREASED BREATH SOUNDS B/L BUT MORE ON LEFT SIDE AND RIGHT UPPER LOBE. Abdomen: Soft, No Tenderness Neurological: Normal Speech, Normal Tone Extremities: B/L PEDAL EDEMA Assessment/Plan Assessment: 82 YO F with PMH of oxygen dependent COPD(on nocturnal 3 L of oxygen), questionable interstitial lung disease-history of 20-25 year exposure to chemicals and fumes at [employer], remote history of left lower extremity DVT -not on any anticoagulation ,history of hypertension, history of gout, history of osteoporosis, GERD, history of shingles March 2017 complicated with neuropathy, presented to the ED through ambulance for the evaluation of acute shortness of breath. We are following the patient will follow problems: Acute on chronic hypoxic respiratory failure due to community accquired Pneumonia and COPD exacerbation: -Continue supplemental oxygen to keep saturation above 92%. Since yesterday she is on high flow oxygen 35% maintaining saturation 96% and using BiPAP at nighttime. -Continue azithromycin and ceftriaxone day 3 -TRC nebulization as needed -Continue Mucinex -Continue Solu-Medrol IV 40 mg every 12 hourly -Incentive spirometry -Chest physiotherapy -Blood cultures are negative. -Chest CT scan was done yesterday that showed right-sided multilobar pneumonia and trace pleural effusion. Left leg DVT: -Doppler study was positive for left popliteal vein DVT -Continue IV heparin and bridging with with Coumadin -Her INR today is 1.15 Acute kidney injury: -Possibly due to dehydration -Avoid nephrotoxic medications -Today her creatinine level is 1.6 Drop in H&H: -Patient's H&H has been dropped since yesterday -Her H&H today is 8.7 and 26.2 -We will closely monitor his H&H -Patient may need blood transfusion History of diastolic heart failure: -Patient has a history of diastolic heart failure echocardiogram done 2010 showed EF of more than 60%. -Elevated proBNP on admission. But less likely have CHF exacerbation as there is no congestion on chest x-ray and right pleural effusion is fairly stable compared to chest x-ray on admission. History of hypertension: -Continue verapamil DVT prophylaxis: Mechanical and patient is on IV heparin drip CODE STATUS: Full code Problem List: 1. Pneumonia 2. COPD exacerbation 3. DVT (deep venous thrombosis) Pain Ratin Pain Location: none Pain Goal: Remain pain free Pain Plan: pain pathway Tomorrow's Labs & Rationales: mary Matos MD,Benjamin 05/08/18 1410: Attending MD Review Statement Attending Statement Attending MD Statement: examined this patient, discuss w/resident/PA/CUPOLA TAPPER, agreed w/resident/PA/CUPOLA TAPPER, reviewed EMR data (avail), discussed with nursing, discussed with case mgmt, amended to note Attending Assessment/Plan: Patient seen and examined. She was weaned off BiPAP therapy during the daytime yesterday and placed on high flow nasal cannula. She utilize BiPAP therapy at night. This morning she is sitting up in bed. She reports feeling somewhat better compared to presentation although she does look out of breath at rest. She denies any chest pain. On examination she has markedly diminished breath sounds bilaterally particularly in the right upper lung zone. She is afebrile. She is hemodynamically stable. CT scan of the chest done yesterday shows moderate to severe pulmonary emphysema a multilobular pneumonia. She has trace right pleural effusion. Recommendations: -Continue current antibiotic regimen. -Transition patient to oral steroid therapy as recommended by the pulmonology service. -Hemoglobin level is stable. Awaiting stool guaiac. Please follow-up with nursing. -Repeat serum chemistry and CBC in a.m. if there is a change in her clinical status. -Given her advanced COPD and chronic hypoxic respiratory failure, patient has poor pulmonary reserve. Continue management of her acute on chronic hypoxic respiratory failure as directed by the pulmonology service.
--- NOTE | 2017-08-19 08:29 | PN- Pulmonary ---
Subjective HPI/Critical Care Issues: Shortness of breath is improved oxygenation is improved CAT scan shows only minimal pleural effusion Objective Current Medications: Current Medications Sig/Ad Start time Last Medication Dose Route Stop Time Status Admin Acetaminophen 1,000 MG Q6P PRN 08/16 0945 AC N/A 1 UNIT IV Albuterol Sulfate 3 ML EVERY 4 HRS/AWAKE 08/16 1200 AC 08/19 INH 0809 Alprazolam 0.25 MG ONCE ONE 08/18 1400 DC 08/18 PO 08/18 1401 1354 Aspirin Buffered 81 MG DAILY 08/16 0837 AC 08/18 PO 0923 Azithromycin 500 MG DAILY 08/17 899 AC 08/18 Sodium Chloride 250 ML IV 0922 Bisacodyl 5 MG DAILY 08/17 0916 AC 08/18 PO 0922 Budesonide/ 2 PUF BID 08/16 0938 AC 08/18 Formoterol Fumarate INH 2002 Calcium Carbonate 500 MG AT BEDTIME 08/18 2100 AC PO Ceftriaxone Sodium 1,000 MG DAILY 08/17 0900 AC 08/18 IV 0922 Guaifenesin 600 MG Q12 08/16 0937 AC 08/18 PO 2002 Heparin Sodium 25,000 UNIT Q24H 08/16 1030 AC 08/18 (Porcine) IV 1353 Sodium Chloride 500 ML Lidocaine 1 PAT Q24H PRN 08/16 0945 AC EXT Methylprednisolone 40 MG Q8 08/16 1400 AC 08/19 IV 0532 Patient Medication 1 ED ONE ONE 08/18 1600 DC 08/18 Teaching ED 08/18 1601 1723 Polyethylene Glycol 17 GM DAILY 08/17 0916 AC 08/18 PO 0922 Tiotropium [place] 1 PUF DAILY 08/16 0937 AC 08/18 INH 0923 Verapamil HCl 120 MG BID 08/16 2100 AC 08/18 PO 2002 Warfarin Sodium 5 MG COUMADIN 1700 ONE 08/18 1700 DC 08/18 PO 08/18 1701 1723 Vital Signs & I&O Last 24 Hrs of Vitals and I&O: Vital Signs Date Time Temp Pulse Resp B/P B/P Pulse O2 O2 Flow FiO2 Mean Ox Delivery Rate 08/19 810 95 Nasal 35% Cannula 08/19 617 97.7 78 20 136/72 98 08/19 0045 91 97 08/19 0000 96 BIPAP 08/18 2049 68 96 08/18 2010 98.9 88 18 120/70 97 Nasal 35% Cannula 08/18 2001 88 120/70 08/18 1948 96 Nasal 35% Cannula 08/18 1636 96 Nasal 35% Cannula 08/18 1557 Nasal Cannula 08/18 1406 98.5 83 20 130/64 96 Room Air 08/18 1130 96 Nasal 35% Cannula 08/18 0836 96 Nasal 4.0L Cannula Intake & Output 08/19 1600 08/19 0800 05/ 0000 Intake Total 325.6 1005.6 Output Total 200 Balance 325.6 805.6 Intake, IV 205.6 205.6 Intake, Oral 120 800 Output, Urine 200 Oxygen saturation 35% is 96%i exam of the chest shows diminished breath sounds are no wheezes or crackles cardiac exam shows regular S1 and S2 without murmurs Impression/Plan Impression/Plan Impression/Plan: 82-year-old woman with severe COPD admitted with community-acquired pneumonia and respiratory failure complicated by pulmonary embolism she is clinically improved Recommendations: Taper FiO2 continue nocturnal BiPAP primary care team to evaluate worsening anemia DC Solu-Medrol and begin oral prednisone
[2017-08-19 08:46] LABS: ABSOLUTE BASOPHIL COUNT 0 /CUMM (0.0-0.2); ABSOLUTE EOSINOPHIL COUNT 0 /CUMM (0.0-0.7); ABSOLUTE LYMPH COUNT 0.4 /CUMM (1.2-3.4); ABSOLUTE MONOCYTE COUNT 0.2 /CUMM (0.10-0.60); BASOPHIL % 0 % (0.0-2.0); EOSINOPHIL % 0 % (0-5); HEMATOCRIT 26.2 % (37-47); MEAN CORPUSCULAR HGB 30.1 PG (27.0-31.0); MEAN CORPUSCULAR HGB CONC 33.4 G/DL (33.0-37.0); MEAN CORPUSCULAR VOLUME 90.3 FL (81.0-99.0); PLATELET COUNT 221 /CUMM (130-400); RBC DISTRIBUTION WIDTH 14.9 % (11.5-14.5); WHITE BLOOD CELL COUNT 12.7 /CUMM (4.8-10.8)
[2017-08-19 08:55] LABS: PT 12.5 SEC (9.4-12.5); PTT 81 SEC (25-37)
[2017-08-19 13:51] VITALS: BP 120/70
[2017-08-19 20:41] LABS: PTT 90 SEC (25-37)
[2017-08-19 21:06] VITALS: BP 138/70
[2017-08-20 06:01] VITALS: BP 124/76
--- NOTE | 2017-08-20 06:58 | PN- Housestaff ---
[facility] Subjective Follow-up For: Acute on chronic hypoxic respiratory failure due to community-acquired pneumonia and COPD exacerbation Left leg DVT LILIA (improving) Subjective: No overnight events. Patient remained afebrile. Seen and examined this morning. She denied any chest pain, nausea, vomiting, chills, fever, abdominal pain and dysuria. She is using 3 L oxygen and BiPAP at nighttime maintaining saturation 98%. Yesterday patient walked around with the help of the walker. She reported that she was short of breath on exertion but that's her baseline. Patient had sputum with blood streaks yesterday. She has bowel movement yesterday and she didn't report any blood in it. Review of Systems Constitutional: Denies: chills, fever. EENTM: Reports: no symptoms. Cardiovascular: Denies: chest pain, orthopena, palpitations. Respiratory: Reports: cough, short of breath. Denies: sputum production. Gastrointestinal: Denies: abdominal pain, constipation, diarrhea, melena, nausea, vomiting. Genitourinary: Reports: no symptoms. Neurological/Psychological: Reports: no symptoms. Objective Last 24 Hrs of Vital Signs/I&O Vital Signs Date Time Temp Pulse Resp B/P B/P Pulse O2 O2 Flow FiO2 Mean Ox Delivery Rate 08/20 0601 97.6 78 18 124/76 98 08/20 0035 89 98 08/20 0000 BIPAP 08/19 2106 98.2 88 18 138/70 96 Nasal 3.0L Cannula 08/19 2039 88 138/70 08/19 2014 96 Nasal 3.0L Cannula 08/19 1616 96 Nasal 3.0L Cannula 08/19 1559 Nasal 3.0L Cannula 08/19 1351 98.2 71 18 120/70 98 Room Air 08/19 0935 72 138/72 08/19 0811 95 Nasal 35% Cannula Intake & Output 08/20 1600 08/20 0800 08/20 0000 Intake Total 905.6 Output Total Balance 905.6 Intake, IV 205.6 Intake, Oral 700 Physical Exam General Appearance: Alert, Oriented X3, Cooperative Skin Temp/Moisture Exam: Warm/Dry Sepsis Skin Exam (color): Normal for Ethnicity HEENT: Atraumatic, PERRLA, EOMI Neck: Supple Cardiovascular: Normal S1, Normal S2 Lungs: left upper lobe decreased breath sounds. right lower lobe crepitus Abdomen: Soft, No Tenderness Neurological: Normal Speech, Strength at 5/5 X4 Ext, Normal Tone Extremities: b/l pedal edema Assessment/Plan Assessment: 82 YO F with PMH of oxygen dependent COPD(on nocturnal 3 L of oxygen), questionable interstitial lung disease-history of 20-25 year exposure to chemicals and fumes at [employer], remote history of left lower extremity DVT -not on any anticoagulation ,history of hypertension, history of gout, history of osteoporosis, GERD, history of shingles March 2017 complicated with neuropathy, presented to the ED through ambulance for the evaluation of acute shortness of breath. We are following the patient will follow problems: Acute on chronic hypoxic respiratory failure due to community accquired Pneumonia and COPD exacerbation:(improving) -Continue supplemental oxygen to keep saturation above 92%. On 3 L o2 that's his baseline. -Started on augmentin 500 mg bid for 10 more day. total antbiotic days 5 -TRC nebulization as needed -Continue Mucinex -Prednisone taper -Incentive spirometry -Chest physiotherapy -Blood cultures are negative. -Chest CT scan was done yesterday that showed right-sided multilobar pneumonia and trace pleural effusion. Left leg DVT: -Doppler study was positive for left popliteal vein DVT -Continue IV heparin and bridging with with Coumadin -INR today 1.81 Acute kidney injury:(improving) -Possibly due to dehydration -Avoid nephrotoxic medications Drop in H&H: -Patient is hemodynamically stable and her H&H is also stable. -We will closely monitor his H&H History of diastolic heart failure: -Echocardiogram was done that showed ejection fraction 55-60% with diastolic heart failure. Patient also having pulmonary hypertension as her right systolic pressure is 48 mmHg. -Elevated proBNP on admission. But less likely have CHF exacerbation as there is no congestion on chest x-ray and right pleural effusion is fairly stable compared to chest x-ray on admission. History of hypertension: -Continue verapamil DVT prophylaxis: Mechanical and patient is on IV heparin drip CODE STATUS: Full code Problem List: 1. COPD exacerbation 2. Pneumonia 3. DVT (deep venous thrombosis) Pain Ratin Pain Location: none Pain Goal: Remain pain free Pain Plan: pain pathway Tomorrow's Labs & Rationales: none Benjamin Matos MD 08/20/17 1230: Attending MD Review Statement Attending Statement Attending MD Statement: examined this patient, discuss w/resident/PA/ACCOUNT RESOLUTION ANALYST, agreed w/resident/PA/ACCOUNT RESOLUTION ANALYST, reviewed EMR data (avail), discussed with nursing, discussed with case mgmt, amended to note Attending Assessment/Plan: Patient seen and examined. She is saturating above 90% on 3L of oxygen. She is able to participate in PT. She is afebrile and hemodynamically stable. She denies chest pain. She admits to SOB on exertion. On examination, she is not in acute distress. On examination, she has fair air-entry bilaterally. Her left LE remains swollen. Labs reviewed, H/H is stable, WBC is WNL and Cr is stable. Will continue to wean down her steroids today. Will continue antibiotic therapy. Due to her deconditioning she will likely benefit from short term rehabilitation at a SNF. Anticiape discharge in 24hrs if she remains clinically stable.
[2017-08-20 08:13] LABS: ABSOLUTE BASOPHIL COUNT 0 /CUMM (0.0-0.2); ABSOLUTE EOSINOPHIL COUNT 0 /CUMM (0.0-0.7); ABSOLUTE GRANULOCYTE CT 8.7 /CUMM (1.4-6.5); ABSOLUTE LYMPH COUNT 0.3 /CUMM (1.2-3.4); ABSOLUTE MONOCYTE COUNT 0.3 /CUMM (0.10-0.60); BASOPHIL % 0.2 % (0.0-2.0); EOSINOPHIL % 0 % (0-5); HEMATOCRIT 24.6 % (37-47); MEAN CORPUSCULAR HGB CONC 33.4 G/DL (33.0-37.0); MEAN CORPUSCULAR VOLUME 89.7 FL (81.0-99.0); MEAN PLATELET VOLUME 7.8 FL (7.4-10.4); PLATELET COUNT 205 /CUMM (130-400); RED BLOOD CELL CT 2.74 /CUMM (4.20-5.40); WHITE BLOOD CELL COUNT 9.4 /CUMM (4.8-10.8)
--- NOTE | 2017-08-20 08:24 | Discharge Summary ---
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 Initial vitals in the ED temperature 102.7, pulse 90, blood pressure 161/73, respiratory rate: 30, initially on 100% nonrebreather mask currently on 5 L saturating around 92% Pertinent labs in remission leukocytosis. 0.5 with bandemia 14, H&H stable,, hyperkalemia 5.4 BUN and creatinine: 41/1.7 with a d-dimer 5718 ABG pH 7.33, PCO2 36, with bicarbonate of 18. Lactic acidosis 2.2, elevated proBNP, flu test negative Chest x-ray evident for Heterogeneous opacification of the mid to basilar right lung, concerning for pneumonia. EKG showed normal sinus rhythm with QTC 413 and poor R-wave progression. Left lower extremity Doppler ultrasound positive for DVT. Following problems were addressed while patient was on the [facility]. 1.Acute hypoxic respiratory failure and sepsis in the setting of community- acquired pneumonia and COPD exacerbation: Patient was admitted [facility]. Received IV Solu-Medrol and IV antibiotics( ceftriaxone and azithromycin) and aggressive IV hydration .She continued to remain hypoxic, and was eventually put on BiPAP to reduce the work of breathing. CT chest without contrast was done that revealed moderate to severe emphysematous disease and multilobar pneumonia. Patient was also evaluated by pulmonology during the hospitalization. Clinical condition gradually improved and she was transitioned to taper it by mouth prednisone and by mouth antibiotics for a total of 14 days. Patient was advised to follow-up with her heat plant specialist on discharge. 2.Left lower extremities DVT(history of remote DVT in the past, not on any anticoagulation): Patient was started on IV heparin. DVT along with acute hypoxia, elevated d- dimer also raises the concern of pulmonary embolism(Wells Score:4.5), but CTA was not done in the setting of kidney dysfunction. Heparin was continued and eventually transitioned to Coumadin with Lovenox. Advised to follow-up with steel chipper as outpatient 3. Mild kidney injury-likely due to dehydration Resolved after getting IV fluids. 4. Acute drop in H&H This was acute drop in H&H (be dilutional after aggressive IV hydration). Guaiac remained negative patient didn't have any active signs of bleed. H&H remained stable afterwards/ 5.History of diastolic heart failure Echocardiogram was repeated that showed Normal left ventricular ejection fraction estimated at 55-60% with estimated RV systolic pressure or 48 mmHg. 6. History of hypertension. Antihypertensives were resumed after stabilization of blood pressure Moderate pain controlled with IV Tylenol DVT prophylaxis with heparin Patient is full code Allergies: Coded Allergies: NO KNOWN ALLERGIES (NKDA) (08/19/10) Disposition Summary Disposition Principal Diagnosis: Acute hypoxic respiratory failure and sepsis in the setting of community- acquired pneumonia and COPD exacerbation: Additional Diagnosis: Left lower extremities DVT(history of remote DVT in the past, not on any anticoagulation) Discharge Disposition: SNF Discharge Instructions General Discharge Information Code Status: Full Code Patient's Diet: Heart healthy diet Patient's Activity: As tolerated Follow-Up Instructions/Appts: Please follow-up with the primary care physician within 1-2 weeks after discharge Please follow-up with the steel chipper within 1 week after discharge Please follow-up with your heat plant specialist within 1-2 week after discharge Return to the ER if the symptoms get worse after discharge Medications at Discharge Discharge Medications: Continue taking these medications: Fluticasone/Salmeterol (Advair 250-50 Diskus) 1 EACH BLST.W.DEV 1 Puff Inhale through mouth TWICE DAILY Comments: Last Taken: NOT GIVEN IN HOSPITAL Time: Verapamil HCl (Verapamil HCl) 120 MG TABLET 1 Tablet ORAL TWICE DAILY Comments: Last Taken: 08/22/17 Time: 9:37 AM Tiotropium [place] (Spiriva) 18 MCG CAP.W.DEV 1 Capsule Inhale through mouth DAILY Comments: Last Taken: 08/22/17 Time: 09:36 AM Aspirin (Ecotrin*) 81 MG TABLET.DR 1 Tablet ORAL DAILY Comments: Last Taken: 08/22/17 Time: 9:37 AM Albuterol Sulfate (Albuterol Sulfate) 0.63 MG/3 ML VIAL.NEB 1 Vial Inhale Solution 4 TIMES A DAY as needed for BREATHING PROBLEMS Comments: Last Taken:08/22/17 Time:8:18 AM Guaifenesin (Guaifenesin ER) 600 MG TAB.ER.12H 1 Tablet ORAL EVERY 12 HOURS Qty = 30 Comments: Last Taken:08/22/17 Time:9:37 AM Acetaminophen (Tylenol Extra Strength) 500 MG TABLET 1 Tablet ORAL EVERY SIX HOURS as needed for POST HERPETIC NEURALGIA Qty = 30 Comments: 650 MG Last Taken: 03/20/17 Time: 0930 AM Start taking the following new medications: Prednisone (Prednisone) 10 MG TABLET 0 ORAL DAILY Qty = 50 No Refills Instructions: On Take 08/23-08/25 50 MG 08/26-08/28 40 MG 08/29-08/31 30 MG 09/01-09/03 20 MG 09/04-09/06 10 mg Then Stop Comments: TAKE PRESCRIBED Augmentin (Augmentin 500-125 Tablet) 500 MG-125 MG TABLET 1 Tablet ORAL TWICE DAILY Qty = 15 No Refills Comments: Last Taken:08/22/17 Time:9:37 AM Warfarin Sodium (Coumadin) 2.5 MG TABLET 1 Tablet ORAL DAILY Qty = 30 No Refills Instructions: Please check your inr daily. Copies To: Hugo ACOSTA,Constantine Blanc MD Review Statement Documenting Attending: Benjamin Matos MD Other Findings: Discharged in stable condition.
[2017-08-20 08:29] LABS: PT 19.8 SEC (9.4-12.5)
--- NOTE | 2017-08-20 08:29 | PN- Pulmonary ---
Subjective HPI/Critical Care Issues: Patient shortness of breath is improved. Her cough is now productive of discolored sputum. Oxygen requirements are at baseline. Objective Current Medications: Current Medications Sig/Ad Start time Last Medication Dose Route Stop Time Status Admin Acetaminophen 1,000 MG Q6P PRN 08/16 0845 AC N/A 1 UNIT IV Albuterol Sulfate 3 ML EVERY 4 HRS/AWAKE 08/16 1200 AC 08/20 INH 0814 Amoxicillin/ 875 MG Q12 08/20 899 UNVr Clavulanate Potassium PO Aspirin Buffered 81 MG DAILY 08/16 936 AC 08/19 PO 0935 Azithromycin 500 MG DAILY 08/17 899 DC 08/19 Sodium Chloride 250 ML IV 0937 Bisacodyl 5 MG DAILY 08/18 915 AC 08/18 PO 0922 Budesonide/ 2 PUF BID 08/16 937 AC 08/19 Formoterol Fumarate INH 203 Calcium Carbonate 500 MG AT BEDTIME 08/18 2100 AC PO Ceftriaxone Sodium 1,000 MG DAILY 08/17 899 DC 08/19 IV 0943 Guaifenesin 600 MG Q12 08/16 936 AC 08/19 PO 2039 Heparin Sodium 25,000 UNIT Q24H 08/16 1030 AC 08/19 (Porcine) IV 1105 Sodium Chloride 500 ML Lidocaine 1 PAT Q24H PRN 08/16 0845 AC EXT Methylprednisolone 40 MG Q12H 08/19 1800 CAN IV Methylprednisolone 40 MG Q8 08/16 1400 DC 08/19 IV 0532 Omeprazole 20 MG DAILY AC 08/20 0819 AC PO Patient Medication 1 ED ONE ONE 08/19 181 DC 08/19 Teaching ED 08/19 1816 1850 Polyethylene Glycol 17 GM DAILY 08/18 915 AC 08/18 PO 0922 Prednisone 60 MG DAILY 08/20 899 DC PO Prednisone 60 MG DAILY 08/20 899 AC PO 09/07 0859 Prednisone 20 MG 1800 08/19 1800 DC 08/19 PO 08/19 1801 1650 Tiotropium [place] 1 PUF DAILY 08/16 936 AC 08/19 INH 0936 Verapamil HCl 120 MG BID 08/16 2100 AC 08/19 PO 2039 Warfarin Sodium 5 MG COUMADIN 1700 ONE 08/19 1700 DC 08/19 PO 08/19 1701 1628 Vital Signs & I&O Last 24 Hrs of Vitals and I&O: Vital Signs Date Time Temp Pulse Resp B/P B/P Pulse O2 O2 Flow FiO2 Mean Ox Delivery Rate 08/20 0815 92 08/20 0601 97.6 78 18 124/76 98 08/20 0035 89 98 08/20 0000 BIPAP 08/19 2106 98.2 88 18 138/70 96 Nasal 3.0L Cannula 08/19 2039 88 138/70 08/19 2014 96 Nasal 3.0L Cannula 08/19 1616 96 Nasal 3.0L Cannula 08/19 1559 Nasal 3.0L Cannula 08/19 1351 98.2 71 18 120/70 98 Room Air 08/19 0935 72 138/72 Intake & Output 08/20 1600 08/20 0800 08/20 0000 Intake Total 445.6 905.6 Output Total Balance 445.6 905.6 Intake, IV 205.6 205.6 Intake, Oral 240 700 Number 1 Bowel Movements Should saturation 3 L 92-98% exam for chest shows diminished breath sounds are no wheezes cardiac exam shows regular S1 and S2 without murmurs Impression/Plan Impression/Plan Impression/Plan: 82-year-old with severe COPD admitted with PE pneumonia which is responding to antibiotics with decreasing white count. Recommendations: Slow prednisone taper. Complete course of antibiotics. Continue nocturnal BiPAP prn
[2017-08-20 09:14] LABS: GRANULOCYTE % 92.6 % (42.2-75.2)
--- NOTE | 2017-08-20 09:24 | Patient Discharge Instructions ---
Discharge Instructions General Discharge Information You were seen/treated for: Acute on chronic hypoxic respiratory failure due to CAP and COPD exacerbation. Left leg DVT LILIA Watch for these problems: Cough, fever, sputum, chest pain, increased shortness of breath, blood in sputum , blood in stool, bleeding from any other part of body, increased swelling of legs and light headedness. If you experience any of these symptoms please come to ED or call to your pcp. Special Instructions: Follow up with pcp in one week. Follow up with chief medical director in one week. Follow up with outpatient coumadin clinic for INR and coumadin dose adjustment. Diet Recommended Diet: Regular Activity Activity Self Limited: Yes Acute Coronary Syndrome Inclusion Criteria At DC or during hospital stay patient has or had the following: ACS DIAGNOSIS No Discharge Core Measures Meds if any: Prescribed or Continued at Discharge Meds if any: NOT Prescribed or Continued at Discharge Congestive Heart Failure Inclusion Criteria At DC or during hospital stay patient has or had the following: CHF DIAGNOSIS No Discharge Core Measures Meds if any: Prescribed or Continued at Discharge Meds if any: NOT Prescribed or Continued at Discharge Cerebrovascular accident Inclusion Criteria At DC or during hospital stay patient has or had the following: CVA/TIA Diagnosis No Discharge Core Measures Meds if any: Prescribed or Continued at Discharge Meds if any: NOT Prescribed or Continued at Discharge Venous thromboembolism Inclusion Criteria VTE Diagnosis Yes VTE Type Deep Venous Thrombosis VTE Confirmed by (Test) UNILATERAL VENOUS DOPPLER Discharge Core Measures - Per Current guidelines, there needs to be overlap - treatment for the first 5 days of Warfarin therapy. - If discharged on Warfarin prior to 5 days of - overlap therapy, the patient will need to be - assessed for post discharge needs including - *Post discharge parental anticoagulation - *Warfarin and/or parental anticoagulation education - *Follow up date to check INR post discharge At least 5 days overlap therapy as Inpatient Yes Meds if any: Prescribed or Continued at Discharge Note: Overlap Therapy is Warfarin and Anticoagulant Meds if any: NOT Prescribed or Continued at Discharge
[2017-08-20 09:37] LABS: PTT 71 SEC (25-37)
[2017-08-20] MEDS ORDERED: AUGMENTIN 500-1 EACH PO ×2 (10:12→17:35)
[2017-08-20 15:29] VITALS: BP 126/84
[2017-08-20] MEDS ORDERED: PREDNISONE10 M2 PO (17:34)
[2017-08-20 20:14] VITALS: BP 140/70
[2017-08-20 22:02] LABS: PTT 96 SEC (25-37)
[2017-08-21 03:59] LABS: ABSOLUTE BASOPHIL COUNT 0 /CUMM (0.0-0.2); ABSOLUTE EOSINOPHIL COUNT 0 /CUMM (0.0-0.7); ABSOLUTE GRANULOCYTE CT 9.1 /CUMM (1.4-6.5); ABSOLUTE LYMPH COUNT 0.4 /CUMM (1.2-3.4); ABSOLUTE MONOCYTE COUNT 0.5 /CUMM (0.10-0.60); BASOPHIL % 0 % (0.0-2.0); EOSINOPHIL % 0 % (0-5); GRANULOCYTE % 90.5 % (42.2-75.2); HEMATOCRIT 23.5 % (37-47); MEAN CORPUSCULAR HGB 29.7 PG (27.0-31.0); MEAN CORPUSCULAR HGB CONC 32.7 G/DL (33.0-37.0); MEAN CORPUSCULAR VOLUME 90.9 FL (81.0-99.0); MEAN PLATELET VOLUME 7.4 FL (7.4-10.4); PLATELET COUNT 206 /CUMM (130-400); RBC DISTRIBUTION WIDTH 15.4 % (11.5-14.5); RED BLOOD CELL CT 2.59 /CUMM (4.20-5.40)
[2017-08-21 04:17] LABS: PTT > 120 SEC (25-37)
[2017-08-21 06:20] VITALS: BP 142/64
--- NOTE | 2017-08-21 07:08 | PN- Housestaff ---
[facility] Subjective Follow-up For: Acute on chronic hypoxic respiratory failure due to community-acquired pneumonia and COPD exacerbation Left leg DVT Subjective: No overnight events. Patient remained afebrile. Seen and examined this morning. She denied any chest pain, nausea, vomiting, chills, fever, abdominal pain dysuria. Patient is using 3 L of oxygen maintaining saturation 98%. She is using BiPAP at nighttime. Patient reported having shortness of breath that's her baseline on exertion. Patient's H&H has been gradually dropping so that's why according discharge her today if her H&H remained stable we will discharge her tomorrow. We will monitor her CBC. Son states he is willing to care for the patient at home and does not want discharge to a shelter facility Review of Systems Constitutional: Denies: chills, fever, weakness. EENTM: Reports: no symptoms. Cardiovascular: Denies: chest pain, orthopena, palpitations. Respiratory: Reports: cough, short of breath. Denies: sputum production. Gastrointestinal: Denies: abdominal pain, constipation, diarrhea, nausea, vomiting. Genitourinary: Reports: no symptoms. Neurological/Psychological: Reports: no symptoms. Objective Last 24 Hrs of Vital Signs/I&O Vital Signs Date Time Temp Pulse Resp B/P B/P Pulse O2 O2 Flow FiO2 Mean Ox Delivery Rate 08/21 1026 98.6 90 18 142/64 08/21 0818 96 Nasal 3.0L Cannula 08/21 0620 98.6 90 18 142/64 99 BIPAP 08/21 0232 89 98 08/21 0000 BIPAP 08/20 2013 98.9 97 18 140/70 98 Nasal 3.0L Cannula 08/20 2009 97 140/70 08/20 1922 96 Nasal 3.0L Cannula 08/20 1600 Nasal 3.0L Cannula 08/20 1550 98 Nasal 3.0L Cannula 08/20 1529 98.7 84 22 126/84 96 Intake & Output 08/21 1600 08/21 0800 08/21 0000 Intake Total 219.6 905.6 Output Total 550 Balance -330.4 905.6 Intake, IV 159.6 205.6 Intake, Oral 60 700 Number 0 Bowel Movements Output, Urine 550 Physical Exam General Appearance: Alert, Oriented X3, Cooperative Skin: No Rashes Skin Temp/Moisture Exam: Warm/Dry Sepsis Skin Exam (color): Normal for Ethnicity HEENT: Atraumatic, PERRLA, EOMI Neck: Supple Cardiovascular: Normal S1, Normal S2 Lungs: Decreased breath sound on right side compare to left Abdomen: Soft, No Tenderness Neurological: Normal Speech, Strength at 5/5 X4 Ext, Normal Tone Extremities: b/l pedal edema Assessment/Plan Assessment: 82 YO F with PMH of 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 We are following the patient will follow problems: Acute on chronic hypoxic respiratory failure due to community accquired Pneumonia and COPD exacerbation:(improving) -Continue supplemental oxygen to keep saturation above 92%. On 3 L o2 that's his baseline. -Started on augmentin 500 mg bid for 10 more day. total antbiotic days 6 -TRC nebulization as needed -Continue Mucinex -Prednisone taper -Incentive spirometry -Chest physiotherapy -Blood cultures are negative. -Patient remained afebrile and hemodynamically stable. She is feeling much improved. Her exertional short of breath is her baseline. Left leg DVT: -Doppler study was positive for left popliteal vein DVT -Her INR is 3.44 today. We will discontinue his IV heparin. -We will hold his Coumadin for today and we will check her INR tomorrow if it's less than 2.9 we will give him 2.5 mg Coumadin tomorrow. Acute kidney injury:(improving) -Possibly due to dehydration -Avoid nephrotoxic medications Drop in H&H: -Patient is hemodynamically stable although her H&H is gradually dropping. -Today her H&H is 7.7/23.5. If her hemoglobin dropped bili of 7 we will transfuse her. -We will monitor her H&H tomorrow again and if it remains stable we will discharge her tomorrow. History of diastolic heart failure: -Echocardiogram was done that showed ejection fraction 55-60% with diastolic heart failure. Patient also having pulmonary hypertension as her right systolic pressure is 48 mmHg. -Elevated proBNP on admission. But less likely have CHF exacerbation as there is no congestion on chest x-ray and right pleural effusion is fairly stable compared to chest x-ray on admission. History of hypertension: -Continue verapamil DVT prophylaxis: Mechanical and on Coumadin CODE STATUS: Full code Problem List: 1. COPD exacerbation 2. Pneumonia 3. DVT (deep venous thrombosis) Pain Ratin Pain Location: none Pain Goal: Remain pain free Pain Plan: pain pathway Tomorrow's Labs & Rationales: inr/cbc Maegan Matos MDmanuelsamantha 08/21/17 1110: Attending MD Review Statement Attending Statement Attending MD Statement: examined this patient, discuss w/resident/PA/EXHIBIT ELECTRICIAN, agreed w/resident/PA/EXHIBIT ELECTRICIAN, reviewed EMR data (avail), discussed with nursing, discussed with case mgmt, amended to note Attending Assessment/Plan: Patient seen and examined. Resting comfortably not in acute distress. No issues overnight reported by nursing staff. She is afebrile. She is hemodynamically stable. She is maintaining saturation on 3 L of oxygen via nasal cannula. On examination she does not appear to be in any acute distress although she is slightly lethargic. She has fair air entry bilaterally. She has left lower extremity edema. Laboratory data shows hemoglobin to be trending down. Stool guaiac is positive however patient does have history of hemorrhoids. INR is supratherapeutic today. Lab review shows metabolic acidosis. Plan: -Continue oral antibiotic therapy. Complete 10 days of treatment. -Continue prednisone taper as recommended by the bi application developer. -Repeat CBC in a.m. Transfuse if hemoglobin level is less than 7. -Begin patient on oral iron supplements -Hold Coumadin today. Resume Coumadin at 2.5 mg daily once INR is less than 2.9. -Mobilize patient as tolerated. -She will be discharged home if her hemoglobin level remained stable. Son states he is willing to care for the patient at home and does not want discharge to a shelter facility
--- NOTE | 2017-08-21 07:40 | PN- Pulmonary ---
Subjective HPI/Critical Care Issues: Patient feels significantly improved with improved oxygenation. Note she is become progressively anemic dropping her hematocrit from 37-23. Objective Current Medications: Current Medications Sig/Ad Start time Last Medication Dose Route Stop Time Status Admin Acetaminophen 1,000 MG Q6P PRN 08/16 944 AC N/A 1 UNIT IV Albuterol Sulfate 3 ML EVERY 4 HRS/AWAKE 08/16 1200 AC 08/20 INH 1921 Amoxicillin/ 500 MG Q12 08/20 899 AC 08/20 Clavulanate Potassium PO 2009 Aspirin Buffered 81 MG DAILY 08/16 936 AC 08/20 PO 0924 Azithromycin 500 MG DAILY 08/17 899 DC 08/19 Sodium Chloride 250 ML IV 09 Bisacodyl 5 MG DAILY 08/18 915 AC 08/18 PO 09 Budesonide/ 2 PUF BID 08/16 937 AC 08/20 Formoterol Fumarate INH 2008 Calcium Carbonate 500 MG AT BEDTIME 08/18 2100 AC PO Ceftriaxone Sodium 1,000 MG DAILY 08/17 899 DC 08/19 IV 0943 Guaifenesin 600 MG Q12 08/16 936 AC 08/20 PO 2009 Heparin Sodium 25,000 UNIT Q24H 08/16 1030 AC 08/20 (Porcine) IV 2300 Sodium Chloride 500 ML Lidocaine 1 PAT Q24H PRN 08/16 944 AC EXT Omeprazole 20 MG DAILY AC 08/21 0719 AC 08/21 PO 0707 Patient Medication 1 ED ONE ONE 08/20 1230 DC 08/20 Teaching ED 08/20 1231 1615 Polyethylene Glycol 17 GM DAILY 08/18 915 AC 08/18 PO 0922 Prednisone 60 MG DAILY 08/20 899 AC 08/20 PO 09/07 0859 0924 Tiotropium [place] 1 PUF DAILY 08/16 936 AC 08/20 INH 0925 Verapamil HCl 120 MG BID 08/16 2100 AC 08/20 PO 2009 Warfarin Sodium 5 MG COUMADIN 1700 ONE 08/20 1700 DC 08/20 PO 08/20 1701 1615 Vital Signs & I&O Last 24 Hrs of Vitals and I&O: Vital Signs Date Time Temp Pulse Resp B/P B/P Pulse O2 O2 Flow FiO2 Mean Ox Delivery Rate 08/22 619 98.6 90 18 142/64 99 BIPAP 08/22 231 89 98 08/21 0000 BIPAP 08/20 2013 98.9 97 18 140/70 98 Nasal 3.0L Cannula 08/20 2009 97 140/70 08/20 1922 96 Nasal 3.0L Cannula 08/20 1600 Nasal 3.0L Cannula 08/20 1550 98 Nasal 3.0L Cannula 08/20 1529 98.7 84 22 126/84 96 08/20 0924 73 168/74 08/20 814 92 Nasal 3.0L Cannula 08/20 0815 92 08/20 0800 96 Nasal 3.0L Cannula Intake & Output 08/21 0800 08/21 0000 08/20 1600 Intake Total 905.6 1165.6 Output Total 300 Balance -300 905.6 1165.6 Intake, IV 205.6 205.6 Intake, Oral 700 960 Number 0 2 Bowel Movements Output, Urine 300 Patient 162 lb Weight Since saturation 3 L 95% exam for chest shows diminished breath sounds are no wheezes or crackles cardiac exam shows a regular S1 and S2 without murmurs Impression/Plan Impression/Plan Impression/Plan: 82-year-old woman with respiratory failure is clinically improved. She is developed acute anemia while on anticoagulation for thromboembolism. Recommendations: Slow prednisone taper. Complete course of antibiotics. Continue nocturnal BiPAP prn evaluation of worsening anemia by primary care team
[2017-08-21 11:47] LABS: PTT 79 SEC (25-37)
[2017-08-21] MEDS ORDERED: COUMADIN2.5 M1 PO (13:46)
[2017-08-21 14:07] VITALS: BP 140/80
[2017-08-21 21:30] VITALS: BP 158/68
[2017-08-21 22:30] VITALS: BP 142/60
[2017-08-22 06:45] VITALS: BP 170/68
--- NOTE | 2017-08-22 07:14 | PN- Housestaff ---
[facility] Subjective Follow-up For: Acute on chronic hypoxic respiratory failure due to COPD exacerbation secondary to community-acquired pneumonia.(improved) Elevated INR DVT left leg Subjective: No overnight events. Patient remained afebrile overnight. Is seen and examined this morning. She denied any chest pain, nausea, vomiting, abdominal pain and dysuria. Patient had bowel movement and she didn't notice any blood in it. Her breathing has been improved. She didn't use BiPAP last night and she was on 3 L of oxygen maintaining saturation 96%. She is at her baseline. Her H&H is stable today and patient's INR was elevated 3.49 today patient was instructed to check her INR again tomorrow if it's less than 2.9 she will take 2.5 mg Coumadin and if it's more than 3 then she will not take any Coumadin. We will skip her today's dose. Patient reported having cough and he is bringing dark colored phlegm. And shortness of breath is her baseline. Review of Systems Constitutional: Denies: chills, fever. EENTM: Reports: no symptoms. Cardiovascular: Denies: chest pain, orthopena, palpitations. Respiratory: Reports: cough, short of breath, sputum production. Gastrointestinal: Denies: abdominal pain, constipation, diarrhea, melena, nausea, vomiting. Genitourinary: Reports: no symptoms. Neurological/Psychological: Reports: no symptoms. Objective Last 24 Hrs of Vital Signs/I&O Vital Signs Date Time Temp Pulse Resp B/P B/P Pulse O2 O2 Flow FiO2 Mean Ox Delivery Rate 08/22 0819 96 Nasal 3.0L Cannula 08/22 0645 98.5 82 22 170/68 97 Nasal 3.0L Cannula 08/22 0000 100 Nasal 3.0L Cannula 08/21 2230 97.7 80 20 142/60 100 Nasal Cannula 08/21 2130 98.4 90 20 158/68 97 Nasal 3.0L Cannula 08/21 2111 98.4 90 20 158/68 08/21 1719 96 Nasal 3.0L Cannula 08/21 1600 Nasal 3.0L Cannula 08/21 1407 97.0 80 20 140/80 97 Nasal 2.0L Cannula 08/21 1026 98.6 90 18 142/64 Intake & Output 05/11 1600 08/22 0800 05/ 0000 Intake Total 480 Output Total 500 800 Balance -500 -320 Intake, Oral 480 Number 1 Bowel Movements Output, Urine 500 800 Physical Exam General Appearance: Alert, Oriented X3, Cooperative Skin Temp/Moisture Exam: Warm/Dry Sepsis Skin Exam (color): Normal for Ethnicity HEENT: Atraumatic, PERRLA, EOMI Neck: Supple Cardiovascular: Normal S1, Normal S2 Lungs: Decreased breath sounds on right compare to left Abdomen: Soft, No Tenderness Neurological: Normal Speech, Strength at 5/5 X4 Ext, Normal Tone Extremities: b/l pedal edema Assessment/Plan Assessment: 82 YO F with PMH of 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 We are following the patient will follow problems: Acute on chronic hypoxic respiratory failure due to community accquired Pneumonia and COPD exacerbation:(improving) -Continue supplemental oxygen to keep saturation above 92%. On 3 L o2 that's his baseline. She didn't use BiPAP last night. She was on 3 L of oxygen and maintaining saturation 96%. -Started on augmentin 500 mg bid for 10 more day. total antbiotic days 7. -TRC nebulization as needed -Continue Mucinex -Prednisone taper -Incentive spirometry -Chest physiotherapy -Blood cultures are negative. -Patient remained hemodynamically stable. She is at her baseline maintaining saturation above 92% on 2 L of oxygen. We are discharging the patient to home today with home health services. Patient was instructed to follow pulmonology as outpatient. Left leg DVT: -Doppler study was positive for left popliteal vein DVT -Patient's INR today is 3.49 although he had her yesterday is Coumadin dose. Possibly due to drug interaction with verapamil. We will hold her today's dose and patient was instructed to check her INR tomorrow and if it's less than 2.9 then she will take 2.5 mg Coumadin and if it's more than 3 then she will not take Coumadin. -Patient is going with home services the nursing staff will check her INR. Acute kidney injury:(improving) -Possibly due to dehydration -Avoid nephrotoxic medications Drop in H&H: -Patient is hemodynamically stable although her H&H is gradually dropping. -Today her H&H is 8.2/25.4 -As her H&H remained stable we will discharge. History of diastolic heart failure: -Echocardiogram was done that showed ejection fraction 55-60% with diastolic heart failure. Patient also having pulmonary hypertension as her right systolic pressure is 48 mmHg. -Elevated proBNP on admission. But less likely have CHF exacerbation as there is no congestion on chest x-ray and right pleural effusion is fairly stable compared to chest x-ray on admission. History of hypertension: -Continue verapamil DVT prophylaxis: Mechanical and on Coumadin CODE STATUS: Full code Problem List: 1. DVT (deep venous thrombosis) 2. Pneumonia 3. COPD exacerbation Pain Ratin Pain Location: NONE Pain Goal: Remain pain free Pain Plan: PAIN PATHWAY Tomorrow's Labs & Rationales: NONE Benjamin Matos MD 08/22/17 1101: Attending MD Review Statement Attending Statement Attending MD Statement: examined this patient, discuss w/resident/PA/SHORTHAND TEACHER, agreed w/resident/PA/SHORTHAND TEACHER, reviewed EMR data (avail), discussed with nursing, discussed with case mgmt, amended to note Attending Assessment/Plan: Patient seen and examined. In bed. He is certainly less lethargic today. She does develop shortness of breath with exertion but is at her baseline. She is afebrile. She is hemodynamically stable. Hemoglobin level is stable today. INR remains supratherapeutic likely due to interaction with her Coumadin and verapamil. Once INR becomes therapeutic recommend decreasing dose of Coumadin. Plan: -Patient is medically stable to be discharged home today. -Case management has been arrangements for visiting nurses to follow the patient at home. We will see the patient tomorrow and check an INR. Instructions have been left to initiate Coumadin therapy at 2.5 mg daily if INR is less than 2.9. INR will be checked again on Friday. INR will be checked weekly and results forwarded to her primary care provider by the emergency room service. -Complete course of antibiotic therapy. -Follow-up with primary care provider in the next week.
--- NOTE | 2017-08-22 08:00 | PN- Pulmonary ---
Subjective HPI/Critical Care Issues: Patient's respiratory status is improved she slept well without BiPAP Objective Current Medications: Current Medications Sig/Ad Start time Last Medication Dose Route Stop Time Status Admin Acetaminophen 1,000 MG Q6P PRN 08/16 0845 AC N/A 1 UNIT IV Albuterol Sulfate 3 ML EVERY 4 HRS/AWAKE 08/16 1200 AC 08/21 INH 2002 Amoxicillin/ 500 MG Q12 08/20 899 AC 08/21 Clavulanate Potassium PO 211 Aspirin Buffered 81 MG DAILY 08/16 936 AC 08/21 PO 1028 Bisacodyl 5 MG DAILY 08/17 0916 AC 08/21 PO 1028 Budesonide/ 2 PUF BID 08/16 0938 AC 08/21 Formoterol Fumarate INH 211 Calcium Carbonate 500 MG AT BEDTIME 08/18 2100 AC 08/21 PO 2110 Gabapentin 300 MG BID 08/21 0845 AC 08/21 PO 2110 Guaifenesin 600 MG Q12 08/16 0937 AC 08/21 PO 2110 Heparin Sodium 25,000 UNIT Q24H 08/16 1030 DC 08/20 (Porcine) IV 2300 Sodium Chloride 500 ML Lidocaine 1 PAT Q24H PRN 08/16 944 AC EXT Omeprazole 20 MG DAILY AC 08/20 0819 AC 08/22 PO 0553 Polyethylene Glycol 17 GM DAILY 08/18 915 AC 08/21 PO 1028 Prednisone 60 MG DAILY 08/20 09 AC 08/21 PO 09/07 0859 1027 Tiotropium [place] 1 PUF DAILY 08/16 09 AC 08/21 INH 1227 Verapamil HCl 120 MG BID 08/16 2100 AC 08/21 PO 2111 Vital Signs & I&O Last 24 Hrs of Vitals and I&O: Vital Signs Date Time Temp Pulse Resp B/P B/P Pulse O2 O2 Flow FiO2 Mean Ox Delivery Rate 08/22 0645 98.5 82 22 170/68 97 Nasal 3.0L Cannula 08/22 0000 100 Nasal 3.0L Cannula 08/210 97.7 80 20 142/60 100 Nasal Cannula 08/21 2130 98.4 90 20 158/68 97 Nasal 3.0L Cannula 08/21 2111 98.4 90 20 158/68 08/21 1719 96 Nasal 3.0L Cannula 08/21 1600 Nasal 3.0L Cannula 08/21 1407 97.0 80 20 140/80 97 Nasal 2.0L Cannula 08/21 1026 98.6 90 18 142/64 08/21 0818 96 Nasal 3.0L Cannula 08/21 0800 96 Nasal 3.0L Cannula Intake & Output 08/22 0800 08/22 0000 08/21 1600 Intake Total 480 Output Total 500 800 Balance -500 -320 Intake, Oral 480 Number 1 Bowel Movements Output, Urine 500 800 Oxygen saturation 3 L 97% exam for chest shows diminished breath sounds are no wheezes or crackles cardiac exam shows regular S1 and S2 without murmurs Impression/Plan Impression/Plan Impression/Plan: 82-year-old woman admitted with respiratory failure secondary to pneumonia thromboembolism. She is clinically improved Recommendations: Slow prednisone taper. Complete course of antibiotics. Continue trial off BiPAP. Further evaluation of her progressive anemia by primary care team. 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
[2017-08-22 08:48] LABS: ABSOLUTE BASOPHIL COUNT 0 /CUMM (0.0-0.2); ABSOLUTE EOSINOPHIL COUNT 0 /CUMM (0.0-0.7); ABSOLUTE GRANULOCYTE CT 8.9 /CUMM (1.4-6.5); ABSOLUTE LYMPH COUNT 0.4 /CUMM (1.2-3.4); ABSOLUTE MONOCYTE COUNT 0.6 /CUMM (0.10-0.60); BASOPHIL % 0 % (0.0-2.0); EOSINOPHIL % 0.1 % (0-5); GRANULOCYTE % 89.6 % (42.2-75.2); HEMATOCRIT 25.4 % (37-47); MEAN CORPUSCULAR HGB 29.3 PG (27.0-31.0); MEAN CORPUSCULAR HGB CONC 32.3 G/DL (33.0-37.0); MEAN CORPUSCULAR VOLUME 90.8 FL (81.0-99.0); MEAN PLATELET VOLUME 7.7 FL (7.4-10.4); PLATELET COUNT 208 /CUMM (130-400); RBC DISTRIBUTION WIDTH 15.4 % (11.5-14.5); WHITE BLOOD CELL COUNT 9.9 /CUMM (4.8-10.8)
[2017-08-22 08:54] LABS: PT 38.5 SEC (9.4-12.5)
[2017-08-22] MEDS ORDERED: AUGMENTIN 500-1 EACH PO ×2 (09:01→11:22)
[2017-08-22] MEDS ORDERED: PREDNISONE10 M2 PO (09:01)
[2017-08-22 10:55] VITALS: BP 140/68
[2017-08-22] MEDS ORDERED: COUMADIN2.5 M1 PO (11:22)
[2017-08-22 13:58] VITALS: BP 140/60
== END 2017-08-22 14:25 | disposition home health service (06) | DRG 871 ==
LOC: ERH 05:28 → 2NA 07:06 → ERHI 07:06 → ENRESERV 09:19 → ENTRNSPT 09:39 → EDTRNSPT 09:42 → 2NA 09:44 → EDTRNSPTSTS 10:11 → EDTRNSPT 10:11 → CMPTRNSPT 10:28 → 2NA 08-18 07:15 → ENPENDDIS 08-22 10:04 → ENTRNSPT 08-22 14:05 → EDTRNSPT 08-22 14:12 → EDTRNSPTSTS 08-22 14:12 → 2NA 08-22 14:25 → CMPTRNSPT 08-22 14:45
PROVIDERS: Internal Medicine; Pediatrics; Student in an Organized Health Care Education/Training Program
DX: A41.9 Sepsis, unspecified organism (principal); J18.9 Pneumonia, unspecified organism; J96.21 Acute and chronic respiratory failure with hypoxia; I13.0 Hypertensive heart and chronic kidney disease with heart failure and stage 1 through stage 4 chronic kidney disease, or unspecified chronic kidney disease; N17.9 Acute kidney failure, unspecified; E87.2 Acidosis; J96.10 Chronic respiratory failure, unspecified whether with hypoxia or hypercapnia; E87.5 Hyperkalemia; I50.32 Chronic diastolic (congestive) heart failure; I82.532 Chronic embolism and thrombosis of left popliteal vein; J44.1 Chronic obstructive pulmonary disease with (acute) exacerbation; Z99.81 Dependence on supplemental oxygen; M81.0 Age-related osteoporosis without current pathological fracture; N18.9 Chronic kidney disease, unspecified; Z57.5 Occupational exposure to toxic agents in other industries; M19.90 Unspecified osteoarthritis, unspecified site; K21.9 Gastro-esophageal reflux disease without esophagitis; Z79.82 Long term (current) use of aspirin; Z79.51 Long term (current) use of inhaled steroids; D64.9 Anemia, unspecified; R79.1 Abnormal coagulation profile; E86.0 Dehydration
CPT/HCPCS: 2NASP; 36415; 36592; 71045; 81003; 82436; 87040; 87070; 87449; 87450; 87804; 87804-59; 93005; 93010; 93306; 96374; 96375; 97110-GO; 97116-GO; 97161-GP; 97530-GO; 99291; J0131; J0456; J0696; J1644; J1940; J2920; J2930; J3490; J7040